=== PATIENT | male | born 1980 | race Caucasian/White ===

== ENCOUNTER 2020-03-23 19:45 | Emergency (ER) | payer OTHER, SELFPAY ==
[2020-03-23 19:47] VITALS: BP 134/91; PULSE 78; RESP 16; TEMP 35.7; O2SAT 98; BMI 23.7
--- NOTE | 2020-03-23 19:54 | ED.DCSUM_ITS ---
History of Present Illness Chief Complaint: Laceration Informant: Patient Onset: Hours - 1/2-hour prior to presentation Mechanism/Context: Blunt Injury, Fall Quality of Pain: - - No pain Location: Laceration superior and lateral right eyebrow Current Severity: Mild Maximum Severity: Moderate Worsened by: Bleeding from laceration Relieved by: Patient states his applied Hyperstat Associated Symptoms: Negative for: Parasthesias, Weakness, Loss of function, Inability to ambulate, Loss of consciousness, Amnesia Length of loss of consciousness: None Narrative: Double vision, blurred vision loss of vision. Denies headache. Denies nausea vomiting. Denies neck pain. He denies paresthesia, anesthesia medics. He denies chest pain or shortness of breath.He denies nausea or vomiting. He is not on an anticoagulant. Tetanus needs updated Tetanus Immunization: Unknown Prior similar symptoms: No Recent Illness/Hospitalization: No - Past Medical History (1) No significant past medical history Status: Acute Past Medical History - Allergies and Home Meds Allergies/Adverse Reactions: Allergies amoxicillin Allergy (Verified 03/23/20 19:46) Hives cefaclor [From Ceclor] Allergy (Verified 03/23/20 19:46) Hives Penicillins Allergy (Verified 03/23/20 19:46) Hives Primary Care Physician: Care Physician,No Primary [Primary Care Provider] - Prior records reviewed: No Past Medical History: None Surgical History: noncontributory Lives: Spouse/ Significant Other Smoking Status: Current every day smoker Alcohol: Occasional Drugs: None Review of Systems General: Denies: Chills, Fever, Malaise, Subjective, Sweats Eyes: Denies: Visual changes - bilaterally, Blurred Vision - bilaterally, Diplopia ENT: Reports: - - Negative epistaxis. Denies: Rhinorrhea, Sore throat Cardiovascular: Denies: Chest pain, Palpitations Respiratory: Denies: Dyspnea, Cough, Dyspnea on exertion Gastrointestinal: Denies: Nausea, Vomiting, Melena, Hematochezia Genitourinary: Denies: Hematuria Musculoskeletal: Denies: Myalgias, Arthralgias, Neck pain, Back pain, Swelling, Extremity Pain Skin: Reports: Wounds. Denies: Rash Neurological: Denies: Headache, Weakness, Parasthesia Hematologic: Denies: Easy bruising, Easy bleeding Physical Exam Vital Signs/Narrative: Vital Signs Temp Pulse Resp BP Pulse Ox 03/23/20 19:47 96.3 F L 78 16 134/91 H 98 Inital Vital Signs reviewed: Yes General: Well nourished, Well developed Head: Normocephalic, Trauma. Negative for: Atraumatic, Tenderness Eyes: Perrl, EOMI, - - No subconjunctival hemorrhage. There is no palpable depression.. Negative for: Pale conjunctiva, Scleral icterus ENT: TM's clear, No hemotympanum or drainage, No trauma. Negative for: Hemotympanum, Otorrhea, Nasal trauma, Nasal septal hematoma Neck: Nontender, Full ROM. Negative for: Spinal Tenderness, Paraspinal Tenderness Cardiovascular: Regular rate, Regular rhythm, No murmurs, Normal S1, Normal S2 Respiratory: No distress, CTA bilaterally, Chest nontender Rectal: Deferred Back: Nontender, - - Is no pain no patient of the pelvis.. Negative for: CVA Tenderness - Right, CVA Tenderness - Left Skin: Normal color, No rash, Trauma. Negative for: Cyanosis, Diaphoresis, Jaundice Neurological: Alert, Oriented x3, Cranial nerves II-XII grossly intact, Normal Strength, Normal Sensation, Normal Gait Psychological: Normal affect, Normal Mood Diagnostic/Tx/Re-eval - Medical Decision Making Has a gaping laceration that is 2 cm in length and will require repair. Tetanus was updated. Area was Nestabs with 1% lidocaine for local infiltration. Please read procedure note. Laceration No standard instances Length: 0.79 in - Is a raised nevus most lateral portion and superior Depth: Sub Q Shape: There is a small V shaped and linear laceration Prep: Ruth Ann Laceration Repair: Local Irrigated (ml): 125 Number of Sutures/[place]: 5 Stitch Description: Ethilon, Simple, 6-0 ED Disposition - Plan for ED Patient: Disposition: Home or Assisted Living Diagnosis: Laceration of forehead without complication Referrals: Care Physician,No Primary [Primary Care Provider] - Ingrid Spencer DO [STAFF PHYSICIAN] - 5 Days for suture removal Additional Instructions: Clean wound with peroxide and Q-tip 3 times a day then apply bacitracin ointment.
[2020-03-23] MEDS: Lidocaine 1% (20 ml mdv) 20 ML Vial INFILT (20:23)
[2020-03-23] MEDS: Diphth,Pertuss(Acell),Tet Vac 0.5 ML Vial IM (20:24)
== END 2020-03-23 20:54 | disposition home or self-care (01) ==
PROVIDERS: Emergency Provider Emergency Medicine
DX: S01.81XA Laceration without foreign body of other part of head, initial encounter (principal); F17.200 Nicotine dependence, unspecified, uncomplicated; X58.XXXA Exposure to other specified factors, initial encounter
CPT/HCPCS: 12011; 90471; 90715; 99283

== ENCOUNTER → 2020-10-14 18:21 | Outpatient (CLI) | payer OTHER, SELFPAY ==
[2020-10-16 20:08] LABS: Covid Inpatient test code BILL Performed (.)
== END ==
PROVIDERS: Visit Provider Physician Assistant Surgical
DX: Z11.52 Encounter for screening for COVID-19 (principal)
CPT/HCPCS: 87635; U0005; U0003

== ENCOUNTER 2024-09-01 22:41 | Emergency (ER) | payer OTHER, SELFPAY ==
[2024-09-01 22:41] VITALS: BP 104/76; PULSE 75; RESP 20; TEMP 36.3; O2SAT 96; BMI 23.1
--- NOTE | 2024-09-01 22:54 | EX.ED.UPPERE ---
HPI History of Present Illness Chief Complaint: Upper Extremity Injury Informant: patient and spouse/S.O. Narrative Narrative: [id number] male here with spouse for evaluation of right shoulder injury prior to arrival. Drinking alcohol, was coming down the stairs he missed the last step falling down outstretched arm. Pain to his right shoulder no head injuries. No anticoagulants. Pain with movement of the shoulder. No history of dislocation in the past. Last meal was around 8 PM less than 3 hours ago. Prior similar symptoms: No PFSH PFSH Medical History no medical history Home Medications ?Medication ?Instructions ?Recorded ?Last Taken ?Type NK 03/23/20 Unknown History Allergy/AdvReac Type Severity Reaction Status Date / Time amoxicillin Allergy Hives Verified 09/01/24 22:41 cefaclor (From [facility]) Allergy Hives Verified 09/01/24 22:41 Penicillins Allergy Hives Verified 09/01/24 22:41 Family History no significant family his Surgical History (Updated 09/01/24 @ 23:02 by Jailene Montgomery) H/O hand surgery History of tonsillectomy H/O knee surgery Social History Smoking Status: Current every day smoker tobacco type: e-cigarettes ROS ROS ED Constitutional Constitutional ED: Denies fever(s) Cardiovascular Cardiovascular: Denies chest pain Respiratory/Chest Respiratory/Chest: Denies cough Gastrointestinal Gastrointestinal: Denies diarrhea or vomiting Musculoskeletal Musculoskeletal: Reports other Details: Right shoulder injury Integumentary Denies rash or wounds Neurologic Neurologic: Denies weakness EXAM Physical Exam Const Vital Signs: 09/01/24 22:41 Temperature 97.3 F L Temperature Source Temporal Pulse Rate 75 Respiratory Rate 20 H Blood Pressure 104/76 Blood Pressure Mean 85 Pulse Ox 96 Oxygen Delivery Method Room Air Positive well nourished and well developed Constitutional Narrative: GCS 15, clinically not intoxicated General Appearance ED: well developed HEENT normocephalic and atraumatic Eyes General Eye ED: Yes normal appearance of both eyes Neck full ROM Neck Narrative: No midline tenderness or step-offs. Chest Wall inspection of chest normal and palpation of chest normal Resp normal respiratory effort and normal air movement Cardio regular rate and regular rhythm GI soft to palpation Extremity Extremity Narrative: Right upper extremity: No clavicle tenderness. There is deformity of the shoulder. No mid humeral tenderness no elbow tenderness. Skin intact. Neuro vas intact. Neuro oriented x3 Skin no rashes or lesions noted and no wounds MDM MDM MDM Narrative Medical decision making narrative: Interventions / MDM: Differential diagnosis: Shoulder dislocation Diagnosis considered but do not suspect: Fracture however x-ray negative. My EKG interpretation: N/A Imaging independently reviewed and interpreted by myself: 3 view right shoulder x-ray: Anterior shoulder dislocation. No fractures. Postreduction x-ray 2 views right shoulder: Successful reduction. External documents reviewed: N/A Test considered but not ordered:N/A ED course: Clinical dislocation of the shoulder. No history of this. He ate 3 hours ago. IV established on the left side of the arm. Morphine Zofran will check x-ray. 2330: X-ray confirms dislocation no fracture. He ate 8 PM less than 4 hours ago. Discussed consented verbally for awake attempt reduction. He agreed. He was sent bedside, sitting straight up, attempted Perez and Dawson's maneuver. Still tense at this time. He is placed in prone position arm hanging over the bed at this time. Will reevaluate. 2355: Procedure note: Shoulder reduction. Verbal consent with the patient. Patient will relax on prone position. Modified Perez maneuver performed with him laying down, reduction reduced without any complications. Improvement of symptoms. Patient tolerated the procedure well. Patient placed in a sling and swath, will obtain imaging to confirm relocation. X-ray confirms relocation. He will use Tylenol or Motrin. He is given follow-up with orthopedic service. Re-evaluation: stable Disposition discussed with patient/family/significant other: Patient Case discussed with consulting clinician: N/A This note was generated with [employer] dictation software. It may contain incorrect words, spelling, and punctuation that were not noted in checking the note before signing. Discharge Plan Triage Chief Complaint: Upper Extremity Injury ED Provider: Radames Diallo Dx/Rx/DC Orders Clinical Impression: Anterior dislocation of right shoulder, Fall Instructions: ED Dislocation: Shoulder (Reduced) Prescriptions: No Action NK Primary Care Provider: Care Physician,No Primary Referrals: Randy Panchal MD [Med Staff - Active Staff] - 3-5 Days Care Physician,No Primary [Primary Care Provider] - Activity Restrictions/Additional Instructions: Maintain sling and swath. Tylenol or Motrin as needed. Follow-up with Dr. Panchal. Print Language: Portuguese Disposition Disposition: Home, Self Care Discharge Date/Time: 09/02/24 02:16
--- NOTE | 2024-09-01 23:01 | RAD_ITS ---
PROCEDURE: SHOULDER MIN 2 VIEWS 09/01/2024 REASON FOR EXAM: INJURY, DISLOCATION TECHNIQUE: SHOULDER MIN 2 VIEWS COMPARISON: No FINDINGS: Anterior inferior glenohumeral dislocation. No visible fracture. RAD/Shoulder min 2 Views IMPRESSION: Right shoulder dislocation. Reading Location: [place] [id number]
--- OUTSIDE RECORDS SUMMARY | 2024-09-01 23:04 | XMS RPT_ITS | CCD ---
Author Organization [facility] Care Team Providers Care Mobility Developer Name Role Phone Doron Cassidy DO Primary Care Provider Dayanara vailable Unavailable Primary Care Provider KAYLA Art Referring Unavailable KAYLA ARENAS Attending Unavailable Allergies Allergy Classification Reported Allergen(s) Allergy Type Date of Onset Reaction(s) Facility (19 sources) Amoxicillin; Translations: [AMOXICILLIN] Drug Allergy 0 [facility] Work Phone: (19 sources) Cefaclor; Translations: [CEFACLOR] Drug Allergy 0 [facility] Work Phone: (4 sources) Penicillins; Translations: [PENICILLINS] Drug Intolerance 0 [facility] Work Phone: (14 sources) Penicillins Drug Intolerance 0 [facility] Work Phone: (1 source) Penicillins Drug Intolerance 0 [facility] Medications Current Medications Medication Drug Class(es) Dates Sig (Normalized) Sig (Original) acetaminophen 325 mg oral capsule (16 sources) acetaminophen 32 5 mg cap Take by mouth as needed. Active Comment on above: Take by mouth as nee ded. cholecalciferol, vitamin D3, (VITAMIN D3 50 MCG, 2,000 UNIT, GUMMIES) (16 sources) take 1 dose by mouth once daily cholecalciferol, vitamin D3, (VITAMIN D3 50 MCG, 2,000 UNIT, GUMMIES) Take 1 Dose by mouth once daily. Active take 1 dose by mouth once daily cholecalciferol, vitamin D3, (VITAMIN D3 50 MCG, 2,000 UNIT, GUMMIES) Take 1 Dose by mouth once daily. 0 Active Comment on above: Take 1 Dose by mouth once daily. ibuprofen 800 mg oral tablet (4 sources) Nonsteroidal Anti-inflammatory Drug Start: 12-23-19 take 1 tablet by mouth three times daily at mealtime ibuprofen (MOTRIN) 800 mg tablet Take 800 mg by mouth three times a day with meals. 12/22/2022 Active multivitamin (DAILY MULTI-VITAMIN) tablet (16 sources) take 1 tablet by mouth once daily multivitamin (DAILY MULTI-VITAMIN) tablet Take 1 tablet by mouth once daily. Active take 1 tablet by mouth once phillip y multivitamin (DAILY MULTI-VITAMIN) tablet Take 1 tablet by mouth once daily. 0 Active Comment on above: Take 1 tablet by patricia th once daily. predniSONE 10 mg oral tablet (1 source) Start: 10-04-2022 End: 10-13-2022 predniSONE (DELTASONE) 10 mg tablet Indications: Acute pain of left knee Take 4 tabs daily for 3 days, then 2 tabs daily for 3 days, then 1 tab daily for 3 days with food. 21 tablet 0 10/04/2022 10/13/2022 Active Comment on above: Take 4 tabs daily fo r 3 days, then 2 tabs daily for 3 days, then 1 tab daily for 3 days with food. tamsulosin hydrochloride 0.4 mg oral capsule (5 sources) alpha-Adrenergic Mirna Start: 02-16-2023 End: 03-27-2024 take 1 capsule by mouth once daily at bedtime tamsulosin (FLOMAX) 0.4 mg Indications: Right flank pain Take 1 capsule by mouth daily at bedtime. 30 capsule 03/27/2024 Active Zinc (16 sources) take 1 tablet by mouth once daily Zinc 50 mg tab Take 50 mg by mouth once daily. Active take 1 tablet by mouth once phillip y Zinc 50 mg tab Take 50 mg by mouth once daily. 0 Active Comment on above: Take 50 mg by mouth once daily. Problems Active Problems Problem Classification Problem Date Documented Date Episodic/Chronic Abdominal pain (7 sources) Right flank pain; Translations: [Unspecified abdominal pain] Onset: 03-27-2024 Episodic Alcohol-related disorders (16 sources) Alcohol abuse; Translations: [Alcohol abuse, uncomplicated] Onset: 11-18-2020 11-18-2020 Chronic Genitourinary symptoms and ill-defined conditions (3 sources) Increased frequency of urination; Translations: [Frequency of micturition] Onset: 03-27-2024 Episodic Joint disorders and dislocations; trauma-related (16 sources) Chondromalacia of left patella; Translations: [Chondromalacia patellae, left knee] Onset: 12-23-2022 12-29-2022 Chronic Other connective tissue disease (1 source) Pain in right hand; Translations: [Pain in right hand] Episodic Other non-traumatic joint disorders (1 source) Pain in left knee; Translations: [Pain in joint, lower leg] 10-04-2022 Episodic Viral infection (1 source) Disease caused by 2019-nCoV; Translations: [COVID-19] Episodic Past or Other Problems Problem Classification Problem Date Documented Da te Episodic/Chronic Fracture of upper limb (17 sources) Closed fracture of fourth metacarpal; Translations: [Unspecified fracture of fourth metacarpal bone, right hand, subsequent encounter for fracture with malunion] Onset: 11-18-2020 11-18-2020 Episodic Joint disorders and dislocations; trauma-related (16 sources) Acute tear of medial meniscus of left knee; Translations: [Other tear of medial meniscus, current injury, left knee, subsequent encounter] Onset: 12-23-2022 12-29-2022 Episodic Results Test Name Value Interpretation Reference Range Facility [facility] 03-30-2024 CNCO Letter Text Normal [facility] CNPNon 03-30-2024 SUIZEN Telephone (FRANCINE) WON LOAIZA ([id number]) 1980 M Date Time Provider Department 03/30/24 KAYLA ARENAS During your visit today, we recorded the following information about you: Houston Cruz MA 03/30/2024 10:14 AM Signed Pt called and was asking for a call to go over recent CT results YEISON Ortega James, MA 03/30/2024 10:39 AM Signed Pt called asking for a doctor note for pt's job/note was faxed [phone]/conforma tion of note sent was received YEISON Ortega James, MA 03/30/2024 10:43 AM Signed Left message with information asked ot to call back office if any questions Housotn Cruz MA Allergies As of Date: 03/30/2024 Noted Allergy Reaction AMOXICILLIN 04/16/2019 4 - Hives CECLOR (CEFACLOR) 04/16/2019 4 - Hives PENICILLINS 04/16/2019 4 - Hives Date Reviewed: 03/27/2024 Reviewed by: Houston Cruz MA - Fully Assessed Reason for Visit: Results [95] Prescriptions as of 03/30/2024 - tamsulosin (FLOMAX) 0.4 mg Take 1 capsule by mouth daily at bedtime. - ibuprofen (MOTRIN) 800 mg tablet Take 800 mg by mouth three times a day with meals. - acetaminophen 325 mg cap Take by mouth as needed. - multivitamin (DAILY MULTI-VITAMIN) tablet Take 1 tablet by mouth once daily. - cholecalciferol, vitamin D3, (VITAMIN D3 50 MCG, 2,000 UNIT, GUMMIES) Take 1 Dose by mouth once daily. - Zinc 50 mg tab Take 50 mg by mouth once daily. Problem List As Of Date 03/30/2024 Noted Resolved Alcohol abuse [F10.10] 11/18/2020 Closed fracture of fourth metacarpal bone of ri*11/18/2020 Acute medial meniscus tear of left knee [S83.24*12/23/2022 Chondromalacia of left patella [M22.42] 12/23/2022 Encounter Status:Closed by HOUSTON CRUZ on 03/30/24 Normal [facility] CT Abdomen and Pelvis WO con traston 03-28-2024 IMPRESSION: No urinary tract calculus. No hydronephrosis. [employer]: MATTHEW Transcribe Date/Time: Mar 28 2024 9:25A Dictated by : NIKO WOODWARD MD This examination was interpreted and the report reviewed and electronically signed by: NIKO WOODWARD MD on Mar 28 2024 9:31AM [facility] DIVISION OF RADIOLOGY * * *Final Report* * * DATE OF EXAM: Mar 28 2024 8:35AM [facility] 0529 - CT FLANK WO IVCON / PROCEDURE REASON: Right flank pain * * * * Physician Interpretation * * * * EXAMINATION: CT FLANK WITHOUT IV CONTRAST CLINICAL HISTORY: Right flank pain. TECHNIQUE: Non-contrast imaging of the abdomen and pelvis was performed through the urinary tract. Study performed without intravenous or oral contrast to evaluate for urinary tract calculus. MQ: CTAbdPelvF_1 Contrast: IV contrast: None Oral contrast: None CT Radiation dose: Integrated dose-length product (DLP) for this visit = 220 mGy*cm. CT Dose Reduction Employed: Automated exposure control(AEC) and iterative recon COMPARISON: CT flank on 02/17/2023 RESULT: Limitations: Unenhanced imaging is limited for the evaluation of some renal and other intra-abdominal and pelvic pathology. Urinary Tract: Right kidney and ureter: No calculus. No hydronephrosis. No finding to suggest cyst or mass in the unenhanced kidney. Left kidney and ureter: No calculus. No hydronephrosis. No finding to suggest cyst or mass in the unenhanced kidney. Bladder: No calculus. Abdomen and Pelvis: Liver: Unremarkable. Biliary: No CT evidence of gallbladder stones. No bile duct dilation. Spleen: No splenomegaly. Pancreas: Unremarkable. Adrenals: Normal. GI Tract: No bowel obstruction. There appears be rectal wall thickening. The appendix is identified and normal in appearance. No visible diverticulitis. Lymph Nodes: No lymphadenopathy. Mesentery/peritoneum: No ascites. No free abdominal air. Vasculature: Not fully characterized. Pelvis: No mass or ascites. Bones and Soft Tissues: No acute abnormality. Lower thorax: Unremarkable. Localizer images: No additional findings. DIVISION OF RADIOLOGY Provider, [facility] - 03/28/2024 * * *Final Report* * * DATE OF EXAM: Mar 28 2024 8:35AM [facility] 0529 - CT FLANK WO IVCON / PROCEDURE REASON: Right flank pain * * * * Physician Interpretation * * * * EXAMINATION: CT FLANK WITHOUT IV CONTRAST CLINICAL HISTORY: Right flank pain. TECHNIQUE: Non-contrast imaging of the abdomen and pelvis was performed through the urinary tract. Study performed without intravenous or oral contrast to evaluate for urinary tract calculus. MQ: CTAbdPelvF_1 Contrast: IV contrast: None Oral contrast: None CT Radiation dose: Integrated dose-length product (DLP) for this visit = 220 mGy*cm. CT Dose Reduction Employed: Automated exposure control(AEC) and iterative recon COMPARISON: CT flank on 02/17/2023 RESULT: Limitations: Unenhanced imaging is limited for the evaluation of some renal and other intra-abdominal and pelvic pathology. Urinary Tract: Right kidney and ureter: No calculus. No hydronephrosis. No finding to suggest cyst or mass in the unenhanced kidney. Left kidney and ureter: No calculus. No hydronephrosis. No finding to suggest cyst or mass in the unenhanced kidney. Bladder: No calculus. Abdomen and Pelvis: Liver: Unremarkable. Biliary: No CT evidence of gallbladder stones. No bile duct dilation. Spleen: No splenomegaly. Pancreas: Unremarkable. Adrenals: Normal. GI Tract: No bowel obstruction. There appears be rectal wall thickening. The appendix is identified and normal in appearance. No visible diverticulitis. Lymph Nodes: No lymphadenopathy. Mesentery/peritoneum: No ascites. No free abdominal air. Vasculature: Not fully characterized. Pelvis: No mass or ascites. Bones and Soft Tissues: No acute abnormality. Lower thorax: Unremarkable. Localizer images: No additional findings. IMPRESSION IMPRESSION: No urinary tract calculus. No hydronephrosis. [employer]: [facility] Transcribe Date/Time: Mar 28 2024 9:25A Dictated by : NIKO WOODWARD MD This examination was interpreted and the report reviewed and electronically signed by: NIKO WOODWARD MD on Mar 28 2024 9:31AM EST [facility] Radiology Study observation (narrative) [facility] CT Abdomen and Pelvis WO con trastOrdered By: [facility] Provider on 03-28-2024 [facility] CT FLANK WO IVCONon 03-28-19 CT FLANK WO IVCON * * *Final Report* * * DATE OF EXAM: Mar 28 2024 8:35AM [facility] 0529 - CT FLANK WO IVCON / PROCEDURE REASON: Right flank pain * * * * Physician Interpretation * * * * EXAMINATION: CT FLANK WITHOUT IV CONTRAST CLINICAL HISTORY: Right flank pain. TECHNIQUE: Non-contrast imaging of the abdomen and pelvis was performed through the urinary tract. Study performed without intravenous or oral contrast to evaluate for urinary tract calculus. MQ: CTAbdPelvF_1 Contrast: IV contrast: None Oral contrast: None CT Radiation dose: Integrated dose-length product (DLP) for this visit = 220 mGy*cm. CT Dose Reduction Employed: Automated exposure control(AEC) and iterative recon COMPARISON: CT flank on 02/17/2023 RESULT: Limitations: Unenhanced imaging is limited for the evaluation of some renal and other intra-abdominal and pelvic pathology. Urinary Tract: Right kidney and ureter: No calculus. No hydronephrosis. No finding to suggest cyst or mass in the unenhanced kidney. Left kidney and ureter: No calculus. No hydronephrosis. No finding to suggest cyst or mass in the unenhanced kidney. Bladder: No calculus. Abdomen and Pelvis: Liver: Unremarkable. Biliary: No CT evidence of gallbladder stones. No bile duct dilation. Spleen: No splenomegaly. Pancreas: Unremarkable. Adrenals: Normal. GI Tract: No bowel obstruction. There appears be rectal wall thickening. The appendix is identified and normal in appearance. No visible diverticulitis. Lymph Nodes: No lymphadenopathy. Mesentery/peritoneum: No ascites. No free abdominal air. Vasculature: Not fully characterized. Pelvis: No mass or ascites. Bones and Soft Tissues: No acute abnormality. Lower thorax: Unremarkable. Localizer images: No additional findings. IMPRESSION: No urinary tract calculus. No hydronephrosis. [employer]: MATTHEW Transcribe Date/Time: Mar 28 2024 9:25A Dictated by : NIKO WOODWARD MD This examination was interpreted and the report reviewed and electronically signed by: NIKO WOODWARD MD on Mar 28 2024 9:31AM EST [id number] Normal [facility] Bacteria Ur Culton 5 Bacteria identified Cx Nom (U) CULTURE, URINE: No growth (<1,000 CFU/ml) Normal [facility] Comment on above: Performed By: #### 6 30-4 #### [facility] CLIA [id number] [address] [place] [address] [place] CNOVon 03-27-2024 CNOV Office Visit (UROLAE ) OLIVERWON Daniels ([id number]) 1980 M Date Time Provider Department 03/27/24 3:20 PM KAYLA ARENAS During your visit today, we recorded the following information about you: Respiration Weight Height 20/minute 79.4 kg 1.88 m Kayla Arenas PA 03/27/2024 4:28 PM Signed [facility] ====== HISTORY OF PRESENT ILLNESS ====== The patient is 43 year old male with a history of urinary frequency who presents for follow up Patient was last seen in urology one year ago for acute left flank pain. He was started on Flomax 0.4 mg daily. However Interval History Patient started experiencing right flank pain one week ago. He also has decreased urine stream over the past week. No blood in the urine, fever or chills DATA REVIEW LABS No results found for: CREAT No results found for: PSA PAST MEDICAL HISTORY/COMORBIDITIES PAST MEDICAL HISTORY Diagnosis Date NEGATIVE MEDICAL HISTORY PAST SURGICAL HISTORY Procedure Laterality Date PAST SURGICAL HISTORY OF tonsillectomy TONSILLECTOMY HX REVIEW OF SYSTEMS REVIEW OF SYSTEMS: CONSTITUTIONAL: No fevers, chills, nightsweats, unintended weight loss GI: No dysphagia/odynophagia , problematic reflux, constipation, diarrhea, changes in stool habits, hematochezia, melena. : No new urinary complaints, including dysuria, gross hematuria or pyuria. INTEGUMENTARY: No new skin changes (rash, new or changing mole, new growth) All other systems were reviewed and are negative. PHYSICAL EXAM GENERAL APPEARANCE: Alert and oriented, No acute distress. HEENT: EOM, pupils equal, round and reactive. NECK: Normal ROM. LUNGS: Normal effort CARDIAC: Well perfused. ABDOMEN: Soft, non-tender, no rigidity. Non-distended. No CVAT MUSCULOSKELETAL: No edema. Normal ROM in extremities. NEUROLOGIC: Gait normal. No focal deficits. SKIN: Skin color normal. No suspicious rashes or lesions. = ASSESSMENT AND PLAN = This is a 43 year old male who presented today for follow up of acute right flank pain. No CVAT Plan: - CT Flank sometime soon - Check culture and UA microscopy - Start Flomax 0.4 mg - Further plans pending this Kayla Arenas PA-C Allergies As of Date: 03/27/2024 Noted Allergy Reaction AMOXICILLIN 04/16/2019 4 - Hives CECLOR (CEFACLOR) 04/16/2019 4 - Hives PENICILLINS 04/16/2019 4 - Hives Date Reviewed: 03/27/2024 Reviewed by: Houston Cruz MA - Fully Assessed Reason for Visit: Kidney Stones [31197] Cmt: possible Primary Visit Diagnosis:Right flank pain [R10.9] Other Visit Diagnosis:Frequency of urination [R35.0] Order(s):UA DIP, URINE (POC) [1570222] Order #: [id number] UA DIP, URINE (POC) [[id number]] Order #: [id number]. #:[id number] CT FLANK WO IVCON [[id number]] Order #: [id number] FUTURE tamsulosin (FLOMAX) 0.4 mgTake 1 capsule by mouth daily at bedtime.Disp: 30 capsuleRfl: 0 BACTERIAL CULTURE, URINE [SQURCUL] Order #: [id number]. #:[id number] URINALYSIS, WITH MICROSCOPIC [SQUAWMIC] Order #: [id number]. #:[id number] Prescriptions as of 03/27/2024 - tamsulosin (FLOMAX) 0.4 mg Take 1 capsule by mouth daily at bedtime. - ibuprofen (MOTRIN) 800 mg tablet Take 800 mg by mouth three times a day with meals. - acetaminophen 325 mg cap Take by mouth as needed. - multivitamin (DAILY MULTI-VITAMIN) tablet Take 1 tablet by mouth once daily. - cholecalciferol, vitamin D3, (VITAMIN D3 50 MCG, 2,000 UNIT, GUMMIES) Take 1 Dose by mouth once daily. - Zinc 50 mg tab Take 50 mg by mouth once daily. Problem List As Of Date 03/27/2024 Noted Resolved Alcohol abuse [F10.10] 11/18/2020 Closed fracture of fourth metacarpal bone of ri*11/18/2020 Acute medial meniscus tear of left knee [S83.24*12/23/2022 Chondromalacia of left patella [M22.42] 12/23/2022 Prescriptions ordered this encounter Disp Refills Start End TAMSULOSIN 0.4 MG CAPSULE 30 c* 0 03/27/2024 Route: ORAL Sig: Take 1 capsule by mouth daily at bedtime. Medications Discontinued During This Encounter Prescriptions - tamsulosin (FLOMAX) 0.4 mg (Discontinued) Take 1 capsule by mouth once daily. Encounter Status:Closed by KAYLA ARENAS on 03/27/24 Normal [facility] UA DIP, URINE (POC)on 2024 BILIRUBIN UA (POCT) Negative Negative [facility] CLARITY UA (POCT) Clear [facility] COLOR UA (POCT) Yellow [facility] GLUCOSE UA (POCT) Negative Negative mg/dL [facility] Hemoglobin Ql (U) Trace-intact Abnormal Negative [facility] Interpretation and review of laboratory results Abnormal [facility] KETONE UA (POCT) 15 mg/dL Abnormal Negative [facility] LEUKOCYTES UA (POCT) Negative Negative [facility] NITRITE UA (POCT) Negative Negative [facility] PH UA (POCT) 6 4.5 - 8.0 [facility] Protein Ql (U) Negative Negative mg/dL [facility] SPECIFIC GRAVITY UA (POCT) 1.015 1.005 - 1.030 [facility] UROBILINOGEN UA (POCT) 0.2 Normal E.U./dL [facility] Location:[facility] Urology Dept, [address] [place] [address], [address] [place] [address] POINT OF CARE [facility] Urinalysis complete panel (U )on 03-27-2024 Bilirubin Ql (U) Negative Negative [facility] Clarity (Unsp spec) Clear Clear [facility] Color (U) Light Yellow yellow [facility] Glucose Test strip (U) [Mass/Vol] Negative Trace, Negative [facility] Hemoglobin Ql (U) Negative Negative, Trace [facility] Interpretation and review of laboratory results Normal [facility] Ketones Ql (U) Trace Negative, Trace [facility] Leukocyte esterase Test strip Ql (U) Negative Negative, 25 Romario/uL [facility] Nitrite Ql (U) Negative Negative [facility] pH (U) 6 [pH] 5.0 - 8.0 [facility] Protein (U) [Mass/Vol] Negative Trace, Negative [facility] RBC LM.HPF (Urine sed) [#/Area] 0-3 /HPF 0-3 /HPF [facility] Specific gravity (U) [Rel density] 1.011 1.005 - 1.030 [facility] Urobilinogen Ql (U) Normal Normal [facility] WBC LM.HPF (Urine sed) [#/Area] 0-5 /HPF 0-5 /HPF [facility] Bilirubin Ql (U) Negative Normal Negative [facility] Comment on above: Order Comment: Speci men Type: URINE SPECIMEN Ordering Facility: [facility] Address: [address] [place] [address] Performed By: #### 2 4356-8 #### [facility] CLIA [id number] [address] [place] [address] [place] Clarity (Unsp spec) Clear Normal Clear [facility] Comment on above: Order Comment: Speci men Type: URINE SPECIMEN Ordering Facility: [facility] Address: [address] [place] [address] Performed By: #### 2 4356-8 #### [facility] CLIA [id number] [address] [place] Color (U) Light Yellow Normal yellow [facility] Comment on above: Order Comment: Speci men Type: URINE SPECIMEN Ordering Facility: [facility] Address: [facility] [place] [address] Performed By: #### 2 4356-8 #### [facility] CLIA [id number] [address] OF [place] Glucose Test strip (U) [Mass/Vol] Negative Normal Trace, Negative [facility] Comment on above: Order Comment: Speci men Type: URINE SPECIMEN Ordering Facility: [facility] Address: [address] [place] [address] Performed By: #### 2 4356-8 #### [facility] CLIA [id number] [address] [place] Hemoglobin Ql (U) Negative Normal Negative, Trace [facility] Comment on above: Order Comment: Speci men Type: URINE SPECIMEN Ordering Facility: [facility] Address: [address] [place] [address] Performed By: #### 2 4356-8 #### [facility] CLIA [id number] [address] OF [place] Ketones Ql (U) Trace Normal Negative, Trace [facility] Comment on above: Order Comment: Speci men Type: URINE SPECIMEN Ordering Facility: [facility] Address: [address] [place] [address] Performed By: #### 2 4356-8 #### [facility] CLIA [id number] [address] OF [facility] Leukocyte esterase Test strip Ql (U) Negative Normal Negative, 25 Romario/uL [facility] Comment on above: Order Comment: Speci men Type: URINE SPECIMEN Ordering Facility: [facility] Address: [address] [place] [address] Performed By: #### 2 4356-8 #### [facility] CLIA [id number] [address] [place] Nitrite Ql (U) Negative Normal Negative [facility] Comment on above: Order Comment: Speci men Type: URINE SPECIMEN Ordering Facility: [facility] Address: [address] [place] [address] Performed By: #### 2 4356-8 #### [facility] CLIA [id number] [address] [place] pH (U) 6.0 [pH] Normal 5.0-8.0 [facility] Comment on above: Order Comment: Speci men Type: URINE SPECIMEN Ordering Facility: [facility] Address: [address] [place] [address] Performed By: #### 2 4356-8 #### [facility] CLIA [id number] [address] Protein (U) [Mass/Vol] Negative Normal Trace, Negative [facility] Comment on above: Order Comment: Speci men Type: URINE SPECIMEN Ordering Facility: [facility] Address: [address] [place] [address] Performed By: #### 2 4356-8 #### [facility] CLIA [id number] [address] [place] RBC LM.HPF (Urine sed) [#/Area] 0-3 /HPF Normal 0-3 /HPF [facility] Comment on above: Order Comment: Speci men Type: URINE SPECIMEN Ordering Facility: [facility] Address: [address] [place] [address] Performed By: #### 2 4356-8 #### [facility] CLIA [id number] [address] OF [place] Specific gravity (U) [Rel density] 1.011 Normal 1.005-1.030 [facility] [facility] Comment on above: Order Comment: Speci men Type: URINE SPECIMEN Ordering Facility: [facility] Address: [address] [place] [address] Performed By: #### 2 4356-8 #### [facility] CLIA [id number] [address] Urobilinogen Ql (U) Normal Normal Normal [facility] Comment on above: Order Comment: Speci men Type: URINE SPECIMEN Ordering Facility: [facility] Address: [address] [place] [address] Performed By: #### 2 4356-8 #### [facility] CLIA [id number] [address] STATES [facility] WBC LM.HPF (Urine sed) [#/Area] 0-5 /HPF Normal 0-5 /HPF [facility] Comment on above: Order Comment: Speci men Type: URINE SPECIMEN Ordering Facility: [facility] Address: [address] [place] [address] Performed By: #### 2 4356-8 #### [facility] CLIA [id number] [address] XR KNEE GENERAL 4V AP BOTH/P A BOTH/LAT/MERC LEFTon 10-04-2022 [facility] XR Knee - left 4 Viewson IMPRESSION: Negative bilateral knee. [employer]: MATTHEW Transcribe Date/Time: Oct 04 2022 5:51P Dictated by : ALEC GUEVARA MD This examination was interpreted and the report reviewed and electronically signed by: ALEC GUEVARA MD on Oct 04 2022 5:55PM [facility] DIVISION OF RADIOLOGY * * *Final Report* * * DATE OF EXAM: Oct 04 2022 5:32PM WOX 5202 - XR KNEE 4V AP/PA BOTH+LAT/LIZBET LT / PROCEDURE REASON: Acute pain of left knee * * * * Physician Interpretation * * * * EXAMINATION: LEFT KNEE X-RAY SERIES EXAMINATION: BILATERAL KNEE STANDING X-RAY SERIES HISTORY: Acute pain of left knee COMPARISON: None available. TECHNIQUE: Left knee x-ray series, lateral view ; bilateral knee standing AP/PA x-ray images and patellar views of both knees RESULT:Left knee: No fracture, dislocation or destructive changes. Joint spaces and articular surfaces are preserved. No evidence of knee joint effusion. Right knee: No evidence of fracture, dislocation or foreign body. Visualized joint spaces appear within normal limits. DIVISION OF RADIOLOGY Provider, Mica Capellan - 10/04/2022 * * *Final Report* * * DATE OF EXAM: Oct 04 2022 5:32PM WOX 5202 - XR KNEE 4V AP/PA BOTH+LAT/LIZBET LT / PROCEDURE REASON: Acute pain of left knee * * * * Physician Interpretation * * * * EXAMINATION: LEFT KNEE X-RAY SERIES EXAMINATION: BILATERAL KNEE STANDING X-RAY SERIES HISTORY: Acute pain of left knee COMPARISON: None available. TECHNIQUE: Left knee x-ray series, lateral view ; bilateral knee standing AP/PA x-ray images and patellar views of both knees RESULT:Left knee: No fracture, dislocation or destructive changes. Joint spaces and articular surfaces are preserved. No evidence of knee joint effusion. Right knee: No evidence of fracture, dislocation or foreign body. Visualized joint spaces appear within normal limits. IMPRESSION IMPRESSION: Negative bilateral knee. [employer]: PSCB Transcribe Date/Time: Oct 04 2022 5:51P Dictated by : ALEC GUEVARA MD This examination was interpreted and the report reviewed and electronically signed by: ALEC GUEVARA MD on Oct 04 2022 5:55PM EST [facility] Radiology Study observation (narrative) [facility] XR Knee - left 4 ViewsOrdere d By: Ccf Provider on 10-04-2022 [facility] UA DIP, URINE (POC)on 2022 BILIRUBIN UA (POCT) Negative Negative [facility] CLARITY UA (POCT) Clear [facility] COLOR UA (POCT) Yellow [facility] GLUCOSE UA (POCT) Negative Negative mg/dL [facility] HEMOGLOBIN/BLOOD UA (POCT) Negative Negative [facility] KETONE UA (POCT) Negative Negative mg/dL [facility] LEUKOCYTES UA (POCT) Negative Negative [facility] NITRITE UA (POCT) Negative Negative [facility] PH UA (POCT) 6.5 4.5 - 8.0 [facility] Protein Ql (U) Negative Negative mg/dL [facility] SPECIFIC GRAVITY UA (POCT) <=1.005 Abnormal 1.005 - 1.030 [facility] UROBILINOGEN UA (POCT) 0.2 E.U./dL Normal E.U./dL [facility] ANES POSTPROC EVALon 021 ANES POSTPROC EVAL HNO ID: [id number] Author: Vladimir Gan MD Service: ? Author Type: Anesthesiologist Type: Anesthesia Postprocedure Evaluation Filed: 11/19/2020 3:17 PM Note Text: POST ANESTHESIA EVALUATION NOTE : 1980 Procedure Summary Date: 11/19/20 Room / Location: TX OR / TX OR Anesthesia Start: 1316 Anesthesia Stop: 1449 Procedure: ORIF METACARPAL (Right Hand) Diagnosis: Hand fracture, right, closed, initial encounter Surgeons: Anderson Powell MD Responsible Provider: Vladimir Gan MD Anesthesia Type: regional ASA Status: 1 Anesthesia Type: regional Last vitals Vitals Value Taken Time BP 130/82 11/19/20 1515 Temp 11/19/20 1516 Pulse 54 11/19/20 1515 Resp 15 11/19/20 1515 SpO2 99 % 11/19/20 1515 Post Anesthesia Patient Status Patient Evaluation: bedside. Anticipated Disposition: phase 2 then home. Neurological Status: aware and responsive. Pulmonary Status: breathing comfortably on room air Airway Control: returned to baseline unsupported. Cardiovascular Status: stable. Pain Management: clinically adequate Postoperative Hydration: acceptable. Intraoperative Events: no significant anesthesia events Post Operative Nausea/Vomiting Status: no significant post operative nausea or vomiting Anesthetic Observations: Recommendation: continue current plan of care. Anesthesia Observations No Documentation SIGNATURE: Vladimir Gan MD PATIENT NAME: Won Loaiza DATE: November 19, 2020 TIME: 3:16 PM CSN: [id number] [facility] ANES PRE-OPon 11-19-2020 ANES PRE-OP HNO ID: [id number] Author: Vladimir Gan MD Service: ? Author Type: Anesthesiologist Type: Anesthesia Preprocedure Evaluation Filed: 11/19/2020 1:26 PM Note Text: ANESTHESIOLOGY DAY OF SURGERY NOTE : 1980 Procedure(s) (LRB): ORIF METACARPAL (Right) Surgeon(s): Anderson Powell MD Estimated body mass index is 21.18 kg/m? as calculated from the following: Height as of this encounter: 188 cm (6' 2). Weight as of this encounter: 74.8 kg (165 lb). Most recent hematocrit and potassium results: No results found for this basename: HCT,HEMATOCRIT,K,POTA SSIUM Relevant Problems No relevant active problems I - PHYSICAL EVALUATION AIRWAY Patient intubated: No. Tracheostomy tube not present Mallampati: II. TM distance: >3 FB. Neck ROM: full ROM without neurological symptoms. Short neck: no. Thick neck: no DENTAL Dental findings: teeth intact. Additional exam findings: yes. CARDIOVASCULAR Rhythm: regular Rate: normal PULMONARY Breath sounds clear to auscultation. II - ANESTHESIA PLAN ASA Score: 1 Anesthetic Plan: regional The patient is not a current smoker. NPO Status: adequate Administration of chronic beta mirna medication not planned. Monitoring plan: standard ASA. Postoperative analgesic plan: multimodal analgesia. Anesthetic Risks, Benefits, Alternatives, Personnel Discussed. Consent obtained from: patient.Patient / Surrogate agrees to blood products: No DNR status not reviewed with patient and/or family prior to surgery. Significant changes in the patient condition since the History and Physical, not otherwise documented in primary service progress note: no. Potential Anesthesia issues that may suggest increased risk of complications or contraindication to planned procedure: none. Vitals Value Taken Time BP 135/98 11/19/20 1136 Pulse 74 11/19/20 1136 Resp Temp 36.7 ?C (98.1 ?F) 11/19/20 1136 SpO2 100 % 11/19/20 1136 Facility-Administered Medications as of 11/19/2020 Medication Dose Route Frequency - lidocaine 10 mg/mL (1 %) 1-2 mg injection (XYLOCAINE) 0.1-0.2 mL INTRADERMAL PRN - lactated ringers iv infusion 5-30 mL/hr INTRAVENOUS CONTINUOUS - clindamycin iv piggyback 600 mg in D5W 50 mL (CLEOCIN) 600 mg INTRAVENOUS Pre-Op Once - [COMPLETED] acetaminophen 650 mg tab(s) (TYLENOL) 650 mg ORAL Pre-Op Once - scopolamine 1 mg over 3 days 1 Patch (TRANSDERM-SCOP) 1 Patch TRANSDERMAL ONCE - midazolam (PF) 2 mg injection (VERSED) 2 mg INTRAVENOUS Pre-Op Once Outpatient Medications as of 11/19/2020 Medication Sig - multivitamin (DAILY MULTI-VITAMIN) tablet Take 1 tablet by mouth once daily. - cholecalciferol, vitamin D3, (VITAMIN D3 50 MCG, 2,000 UNIT, GUMMIES) Take 1 Dose by mouth once daily. - Zinc 50 mg tab Take 50 mg by mouth once daily. I have interviewed and examined the patient. I have reviewed the medical record and/or the pre-anesthesia evaluation, pertinent labs, and test results. This contains updated information obtained within 48 hours of Surgery/Procedure. SIGNATURE: Vladimir Gan MD PATIENT NAME: Won Loaiza DATE: November 19, 2020 TIME: 12:21 PM CSN: [id number] [facility] NURSING PROGon 11-19-2020 NURSING PROG HNO ID: [id number] Author: José Ellis RN Service: Nursing Author Type: Registered Nurse Type: Nursing Progress Note Filed: 11/19/2020 1:17 PM Note Text: Dr. Gan at bedside for Left axillary nerve block. RN at bedside, pt monitored throughout, BP 122/68 Pulse (!) 58 Temp 36.7 ?C (98.1 ?F) (Temporal Artery) Resp 25 Ht 188 cm (6' 2) Wt 74.8 kg (165 lb) SpO2 97% BMI 21.18 kg/m? . Pt tolerated procedure without difficulty. [facility] OPERATIVE NOon 11-19-2020 OPERATIVE NO HNO ID: [id number] Author: Anderson Powell MD Service: Orthopaedic Surgery Author Type: Physician Type: Operative Report Filed: 11/19/2020 3:02 PM Note Text: OPERATIVE/PROCEDURE REPORT LOG ID: [id number] SURGERY/PROCEDURE DATE: 11/19/2020 INCISION/PROCEDURE START TIME: 1:43 PM INCISION CLOSE/PROCEDURE END TIME: 2:39 PM SURGEON(S)/PROCEDURAL IST(S) AND MUSIC INTERN(S): Surgeon(s) and Role: * Anderson Powell MD - Primary PA-C; Merly Lawrence PA-C SURGERY: Rightt hand, closed reduction and intramedullary fixation, fourth and fifth metacarpals. ANESTHESIA: Regional with supplemental. SURGERY/PROCEDURE DETAILS: This is a alvin who injured his right hand vs wall, had displaced shaft fracture of the fourth and angulated neck of the fifth metacarpal. Based on the position and multiple bones involved, surgical indications were suggested. The risks, benefits, alternatives and potential complications involving both operative and nonoperative treatment were reviewed with he consenting for surgery. On 11/19/2020, the patient was clearly identified in the preoperative area marked accordingly on the right fourth and fifth digits by myself. He was taken to the operative suite and placed in a supine position with an armboard on the left. He received 600 mg of Clindamycin in the IV within 1 hour of incision. A well-padded upper brachium tourniquet was applied with cotton padding and set at 250 mmHg but not yet inflated. All other bony landmarks were padded accordingly. The upper extremity was then sterilely prepped and draped in standard fashion. An appropriate timeout was conducted and all in the room were in agreement, signed consent form was on the chart, images were available for viewing and implants were in the room with representation in a mini fluoroscopic unit present. 2 small incisions were made directly over the MCP joints of the fourth and fifth digits. Skin flaps were created down to the extensor mechanism. The extensors of both digits were divided with a 15 blade to expose the the joint. With the head of the metacarpal exposed and with a reduction maneuver applied, a guidepin from the [employer] intramedullary screw kit was selected and placed in the upper third on a central position and this was passed across the fracture site. The 4th was pretty difficult to get 100% reduced, but we got it. It was then measured and drilled for. While holding reduction and rotational stability, a intramedullary screw was placed a 3.6 mm x 45 mm screw. With this secured, the small finger was then reduced, pinned, measured and drilled for. This time, a 40 mm 4.5 millimeter screw was selected and again it was placed down under anatomic and rotational reduction. I made sure both radiographically and visually that the screws were recessed appropriately. Both wounds were copiously irrigated with normal saline. The extensor mechanism was closed over the top of both joints using 4-0 Monocryl suture buried. Final skin closure after the tourniquet was taken down and hemostasis was observed was closed with 3?0 nylons in interrupted fashion. Xeroform gauze, sterile 4 x 4's, a volar ulnar gutter splint with a light Addy wrap and Ganesh bandage was applied. There were no complications during the procedure. Patient was safely awoken and transferred to the postanesthetic care unit in stable condition. PRE-OP/PRE-PROCEDURE DIAGNOSIS: Right, fourth and fifth metacarpal fractures, displaced. POST-OP/POST-PROCEDUR E DIAGNOSIS: Same as Preop ESTIMATED BLOOD LOSS: 0 ml SPECIMENS: None IMPLANTABLE DEVICES: Innomed IM screws 1x 4.5 and 1X 3.6mm x 40mm and 45mm, each DRAINS: None COMPLICATIONS: None PARTICIPATION IN SURGERY/PROCEDURE: I/primary surgeon/proceduralist performed the procedure with assistance. No qualified resident/fellow was available. transportation assistant was necessary for safe patient positioning, sterile prepping and draping. arm assistance, positioning and protection, soft tissue retraction, protection of vital structures and suture management during the case. Final skin closure, splint and bandage application and safe to the recovery room in stable condition. SIGNATURE: Anderson Powell MD PATIENT NAME: Won Loaiza DATE: November 19, 2020 TIME: 2:53 PM [facility] XR FLUOROSCOPYon 11-19-2020 XR FLUOROSCOPY * * *Final Report* * * DATE OF EXAM: Nov 19 2020 2:57PM MDR 5513 - XR FLUOROSCOPY / PROCEDURE REASON: ORIF METECARPAL-RIGHT * * * * Physician Interpretation * * * * XR FLUOROSCOPY HISTORY: Indication: ORIF METECARPAL-RIGHT ORIF METACARPALS- RIGHT TECHNIQUE: Fluoroscopy provided by the x-ray technologist to NAME who performed the procedure. Fluoroscopic Radiation Summary: Plane A, Air Kerma: 126.1 mGy Dose Area Product (DAP): 0.0 mGy*cm^2 Fluoro time: 4:52 min:sec Images obtained: 4 Spot film images/cine fluoroscopy images under fluoroscopic guidance. Images were stored in a permanent archive. Comparison: NONE. RESULT: Findings: Findings of insertion of metallic pins transfixing the fractures of the fourth and fifth carpals. Hardware and fragments in good alignment.. See procedural note in Epic for further discussion. IMPRESSION: As discussed above [employer]: MATTHEW Transcribe Date/Time: Nov 19 2020 3:19P Dictated by : JAYSHREE DEL CID DO This examination was interpreted and the report reviewed and electronically signed by: JAYSHREE DEL CID DO on Nov 20 2020 10:44AM EST [id number] [facility] XR Hand - right PA and Later al and Obliqueon 11-10-2020 IMPRESSION: Right fourth and fifth metacarpal fractures. [employer]: MATTHEW Transcribe Date/Time: Nov 10 2020 6:11P Dictated by : RADHA DE LEON MD This examination was interpreted and the report reviewed and electronically signed by: RADHA DE LEON MD on Nov 10 2020 6:12PM EST DIVISION OF RADIOLOGY * * *Final Report* * * DATE OF EXAM: Nov 10 2020 6:07PM WOX 5346 - XR HAND 3V PA/LAT/OBL RT / PROCEDURE REASON: Hand injuries, right, initial encounter * * * * Physician Interpretation * * * * XR HAND 3V PA/LAT/OBL RT CLINICAL HISTORY: Hand injuries, right, initial encounter COMPARISON: None. RESULT: Right fourth metacarpal fracture with angulation and displacement. Right fifth metacarpal fracture with angulation. Associated soft tissue swelling. Joint spaces are preserved. DIVISION OF RADIOLOGY Provider, Mica [facility] - 11/10/2020 * * *Final Report* * * DATE OF EXAM: Nov 10 2020 6:07PM WOX 5346 - XR HAND 3V PA/LAT/OBL RT / PROCEDURE REASON: Hand injuries, right, initial encounter * * * * Physician Interpretation * * * * XR HAND 3V PA/LAT/OBL RT CLINICAL HISTORY: Hand injuries, right, initial encounter COMPARISON: None. RESULT: Right fourth metacarpal fracture with angulation and displacement. Right fifth metacarpal fracture with angulation. Associated soft tissue swelling. Joint spaces are preserved. IMPRESSION IMPRESSION: Right fourth and fifth metacarpal fractures. [employer]: PSCB Transcribe Date/Time: Nov 10 2020 6:11P Dictated by : RADHA DE LEON MD This examination was interpreted and the report reviewed and electronically signed by: RADHA DE LEON MD on Nov 10 2020 6:12PM EST [facility] Radiology Study observation (narrative) [facility] XR Hand - right PA and Later al and ObliqueOrdered By: Ccf Provider on 11-10-2020 [facility] COVID 19, BAHMAN SENDOUTon 09-0 SARS-CoV-2 (COVID-19) RNA BAHMAN+probe Ql (Unsp spec) Not detected Normal Not Detected [facility] Comment on above: Order Comment: Karuna daniels for Exam: encounter for covid test Result Comment: This nucleic acid amplification test was developed and its performance characteristics determined by [employer]. Nucleic acid amplification tests include RT- PCR and TMA. This test has not been FDA cleared or approved. This test has been authorized by FDA under an Emergency Use Authorization (EUA). This test is only authorized for the duration of time the declaration that circumstances exist justifying the authorization of the emergency use of in vitro diagnostic tests for detection of SARS-CoV-2 virus and/or diagnosis of COVID-19 infection under section 564(b)(1) of the Act, 21 U.S.C. 360bbb-3(b) (1), unless the authorization is terminated or revoked sooner. When diagnostic testing is negative, the possibility of a false negative result should be considered in the context of a patient's recent exposures and the presence of clinical signs and symptoms consistent with COVID-19. An individual without symptoms of COVID-19 and who is not shedding SARS-CoV-2 virus would expect to have a negative (not detected) result in this assay. Performed By: #### L [id number] #### [facility] [address] [place], [place], [address] Urgent Care Visit Reporton 0 10-14-2020 Urgent Care Visit Report [facility] [address] [place] [address] [address] [place], [place] [address] OFFICE VISIT Date of Service: 10/14/20 MR#: [id number] Acct: [id number] Name: WON LOAIZA Srini Rep #: [id number] : 1980 Provider: MOI Garcia Age/Sex: 39/M Location: [facility] Status: Signed Intake Vital Signs 10/14/20 17:04 Height 6 ft Weight: 173 lb BMI 23.4 BP 132/76 H Blood Pressure Location Lt brachial Position Sitting Respiration 16 Pulse 102 H Pulse Source Monitor Temp 98.1 F Temp Source Temporal Pulse Oximetry (%) 98 Oxygen Delivery Method room air Intake Visit Reasons: COVID TEST FOR CONCERT Allergies amoxicillin Allergy (Verified 10/14/20 17:05) Hives cefaclor [From [facility]] Allergy (Verified 10/14/20 17:05) Hives Penicillins Allergy (Verified 10/14/20 17:05) Hives Medications NK 03/23/20 [History Confirmed 10/14/20] PFSH Social History Smoking Status: Current every day smoker HPI HPI Details: WON LOAIZA, is a 39 M who presents to the office today for request Covid screening test prior to a concert. He denies any symptoms. ROS Const Constitutional: Positive for other (6 system ROS completed with pertinent findings in HPI otherwise normal.) Exam Const General: cooperative and healthy appearing HENMT Head: normocephalic and atraumatic Ears: hearing grossly normal bilaterally Nose: external nose normal Face and sinus: normal facial exam and face symmetric Mouth: oral mucosae normal Throat: posterior oropharynx normal Eyes General: appearance normal, both eyes and all related structures Resp Effort Inspection: normal respiratory effort Auscultation: Bilateral: Clear to Auscultation Cardio Palpation: normal PMI Rate: regular rate Rhythm: regular rhythm Skin General: no rashes or lesions noted Neuro General: patient alert and CN's II-XI intact bilaterally Psych Appearance: grossly normal Mental Status: mental status grossly normal Coding Level of Care Code Off vis,new,level 3 Diagnoses Encounter for screening for COVID-19 Z11.52 Assessment and Plan Assessment and Plan (1) Encounter for screening for COVID-19: Status: Acute Orders: Orders: COVID 19, PCR SENDOUT 10/14/20 Z11.52 Plan - MOI Siu: Patient swab for Covid send out. Patient advised to get his results off of the patient portal. Patient verbalized understanding and agreement with all the above. 10/15/20 1305 Date David PRATER Cosigner Signature: Date (if applicable) CC: Normal [facility] Emergency Department Summary on 03-23-2020 Emergency Department Summary [facility] Medical Records Department [address] [place] [address] Emergency Department Summary 03/23/20 MR#: [id number] Acct: [id number] Name: WON LOAIZA Rep #: [id number] : 1980 39 From: Sacha Marti MD PCP: Care Physician, No Primary Status:PRE ER History of Present Illness Chief Complaint: Laceration Informant: Patient Onset: Hours - 1/2-hour prior to presentation Mechanism/Context: Blunt Injury, Fall Quality of Pain: - - No pain Location: Laceration superior and lateral right eyebrow Current Severity: Mild Maximum Severity: Moderate Worsened by: Bleeding from laceration Relieved by: Patient states his applied Hyperstat Associated Symptoms: Negative for: Parasthesias, Weakness, Loss of function, Inability to ambulate, Loss of consciousness, Amnesia Length of loss of consciousness: None Narrative: Double vision, blurred vision loss of vision. Denies headache. Denies nausea vomiting. Denies neck pain. He denies paresthesia, anesthesia medics. He denies chest pain or shortness of breath.He denies nausea or vomiting. He is not on an anticoagulant. Tetanus needs updated Tetanus Immunization: Unknown Prior similar symptoms: No Recent Illness/Hospitalizati on: No - Past Medical History (1) No significant past medical history Status: Acute Past Medical History - Allergies and Home Meds Allergies/Adverse Reactions: Allergies amoxicillin Allergy (Verified 03/23/20 19:46) Hives cefaclor [From Ceclor] Allergy (Verified 03/23/20 19:46) Hives Penicillins Allergy (Verified 03/23/20 19:46) Hives Primary Care Physician: Care Physician,No Primary [Primary Care Provider] - Prior records reviewed: No Past Medical History: None Surgical History: noncontributory Lives: Spouse/ Significant Other Smoking Status: Current every day smoker Alcohol: Occasional Drugs: None Review of Systems General: Denies: Chills, Fever, Malaise, Subjective, Sweats Eyes: Denies: Visual changes - bilaterally, Blurred Vision - bilaterally, Diplopia ENT: Reports: - - Negative epistaxis. Denies: Rhinorrhea, Sore throat Cardiovascular: Denies: Chest pain, Palpitations Respiratory: Denies: Dyspnea, Cough, Dyspnea on exertion Gastrointestinal: Denies: Nausea, Vomiting, Melena, Hematochezia Genitourinary: Denies: Hematuria Musculoskeletal: Denies: Myalgias, Arthralgias, Neck pain, Back pain, Swelling, Extremity Pain Skin: Reports: Wounds. Denies: Rash Neurological: Denies: Headache, Weakness, Parasthesia Hematologic: Denies: Easy bruising, Easy bleeding Physical Exam Vital Signs/Narrative: Vital Signs Temp Pulse Resp BP Pulse Ox 03/23/20 19:47 96.3 F L 78 16 134/91 H 98 Inital Vital Signs reviewed: Yes General: Well nourished, Well developed Head: Normocephalic, Trauma. Negative for: Atraumatic, Tenderness Eyes: Perrl, EOMI, - - No subconjunctival hemorrhage. There is no palpable depression.. Negative for: Pale conjunctiva, Scleral icterus ENT: TM's clear, No hemotympanum or drainage, No trauma. Negative for: Hemotympanum, Otorrhea, Nasal trauma, Nasal septal hematoma Neck: Nontender, Full ROM. Negative for: Spinal Tenderness, Paraspinal Tenderness Cardiovascular: Regular rate, Regular rhythm, No murmurs, Normal S1, Normal S2 Respiratory: No distress, CTA bilaterally, Chest nontender Rectal: Deferred Back: Nontender, - - Is no pain no patient of the pelvis.. Negative for: CVA Tenderness - Right, CVA Tenderness - Left Skin: Normal color, No rash, Trauma. Negative for: Cyanosis, Diaphoresis, Jaundice Neurological: Alert, Oriented x3, Cranial nerves II-XII grossly intact, Normal Strength, Normal Sensation, Normal Gait Psychological: Normal affect, Normal Mood Diagnostic/Tx/Re-eval - Medical Decision Making Has a gaping laceration that is 2 cm in length and will require repair. Tetanus was updated. Area was Nestabs with 1% lidocaine for local infiltration. Please read procedure note. Laceration No standard instances Length: 0.79 in - Is a raised nevus most lateral portion and superior Depth: Sub Q Shape: There is a small V shaped and linear laceration Prep: Ruth Ann Laceration Repair: Local Irrigated (ml): 125 Number of Sutures/[place]: 5 Stitch Description: Ethilon, Simple, 6-0 ED Disposition - Plan for ED Patient: Disposition: Home or Assisted Living Diagnosis: Laceration of forehead without complication Referrals: Care Physician,No Primary [Primary Care Provider] - Ingrid Spencer DO [STAFF PHYSICIAN] - 5 Days for suture removal Additional Instructions: Clean wound with peroxide and Q-tip 3 times a day then apply bacitracin ointment. What to do if you have Problems For any increased pain, shortness of breath, bleeding, nausea or vomiting, chest pain, or any unexpected problems, contact your Primary Care Provider. Call Doctors Registry (33 (more content not included)... Normal [facility] Cult Urineon 04-19-2019 Cult Urine Test performed at [facility] No growth <1,000 CFU/ml. Normal [facility] Comment on above: Performed By: #### C _URI #### [place] [id number] Vital Signs Date Time Vital Sign Value Performing Clinician Jose palacio 03-27-2024 15:27-0500 Body height 188 cm Kayla PRATER Work Phone: [facility] 03-27-2024 15:27-0500 Body mass index (BMI) [Ratio] 22.47 kg/m2 Kayla PRATER Work Phone: [facility] 03-27-2024 15:27-0500 Body weight 79.38 kg Kayla PRATER Work Phone: [facility] 03-27-2024 15:27-0500 Respiratory rate 20 /min Kayla PRATER Work Phone: [facility] 10-04-2022 17:02-0400 Body temperature 98.4 [degF] Nahum Gan APRN.PROJECT FINANCIAL ANALYST Work Phone: [facility] 10-04-2022 17:02-0400 Body weight 79.38 kg Nahum Gan APRN.PROJECT FINANCIAL ANALYST Work Phone: [facility] 10-04-2022 17:02-0400 Diastolic blood pressure 80 mm[Hg] Nahum King HAIR SPINNER.PROJECT FINANCIAL ANALYST Work Phone: [facility] 10-04-2022 17:02-0400 Heart rate 108 /min Nahum Gan HAIR SPINNER.PROJECT FINANCIAL ANALYST Work Phone: [facility] 10-04-2022 17:02-0400 Respiratory rate 16 /min Nahum Gan HAIR SPINNER.PROJECT FINANCIAL ANALYST Work Phone: [facility] 10-04-2022 17:02-0400 SaO2% (BldA) [Mass fraction] 98 % Nahum Gan HAIR SPINNER.PROJECT FINANCIAL ANALYST Work Phone: [facility] 10-04-2022 17:02-0400 Systolic blood pressure 134 mm[Hg] Nahum Gan HAIR SPINNER.PROJECT FINANCIAL ANALYST Work Phone: [facility] 05-10-2022 13:41-0400 Body temperature 99.61 [degF] Casa Rodriguez MD Work Phone: [facility] 05-10-2022 13:41-0400 Body weight 75.75 kg Casa Rodriguez MD Work Phone: [facility] 05-10-2022 13:41-0400 Diastolic blood pressure 80 mm[Hg] Casa Rodriguez MD Work Phone: [facility] 05-10-2022 13:41-0400 Heart rate 121 /min Casa Rodriguez MD Work Phone: [facility] 05-10-2022 13:41-0400 Respiratory rate 16 /min Casa Rodriguez MD Work Phone: [facility] 05-10-2022 13:41-0400 SaO2% (BldA) [Mass fraction] 99 % Casa Rodriguez MD Work Phone: [facility] 05-10-2022 13:41-0400 Systolic blood pressure 124 mm[Hg] Casa Rodriguez MD Work Phone: [facility] Encounters Encounter Date Encounter Type Care Provider Facility Start: 03-30-2024 End: 03-30-2024 Telephone encounter Kayla PRATER Work Phone: Urology Comment on above: Results Start: 03-29-2024 End: 05-29-2024 Follow-up encounter Kayla PRATER Work Phone: Urology Comment on above: Results Start: 03-28-2024 End: 03-28-2024 ambulatory KAYLA ARENAS Facility:[facility] Start: 03-28-2024 End: 03-28-2024 Subsequent hospital visit by physician [facility] (I-Stat) Work Phone: Cat Scan Comment on above: Right flank pain [R1 0.9] Start: 03-27-2024 End: 03-27-2024 Patient encounter procedure Kayla PRATER Work Phone: Urology Comment on above: Right flank pain (Pr imary Dx); Frequency of urination Start: 03-27-2024 End: 03-27-2024 ambulatory KAYLA ARENAS Facility:[facility] Start: 01-24-2023 End: 01-24-2023 ambulatory Ariane Popps [employer] AUTOMATIC I THREADING MACHINE FEEDER Work Phone: [facility] Comment on above: Acute medial meniscu s tear of left knee, subsequent encounter (Primary Dx); Chondromalacia of left patella Start: 01-21-2023 End: 01-21-2023 ambulatory Leoncio Golias PT Work Phone: [facility] Comment on above: Acute medial meniscu s tear of left knee, subsequent encounter (Primary Dx); Chondromalacia of left patella Start: 01-17-2023 End: 01-17-2023 ambulatory [employer] AUTOMATIC I THREADING MACHINE FEEDER Work Phone: [facility] Comment on above: Acute medial meniscu s tear of left knee, subsequent encounter (Primary Dx); Chondromalacia of left patella Start: 01-14-2023 End: 01-14-2023 ambulatory Leoncio Golias PT Work Phone: [facility] Comment on above: Acute medial meniscu s tear of left knee, subsequent encounter (Primary Dx); Chondromalacia of left patella Start: 01-10-2023 End: 01-10-2023 ambulatory Ariane Castro AUTOMATIC I THREADING MACHINE FEEDER Work Phone: [facility] Comment on above: Acute medial meniscu s tear of left knee, subsequent encounter (Primary Dx); Chondromalacia of left patella Start: 12-29-2022 End: 12-29-2022 ambulatory Leoncio Golmilad PT Work Phone: [facility] Comment on above: Acute medial meniscu s tear of left knee, subsequent encounter (Primary Dx); Chondromalacia of left patella Start: 10-04-2022 End: 10-04-2022 Subsequent hospital visit by physician [facility] Work Phone: Radiology Comment on above: Acute pain of left k nee [M25.562] Start: 10-04-2022 End: 10-04-2022 Patient encounter procedure Nahum Gan APRN.PROJECT FINANCIAL ANALYST Work Phone: [facility] Comment on above: Acute pain of left k nee (Primary Dx) Start: 05-10-2022 End: 05-10-2022 Patient encounter procedure Casa Rodriguez MD Work Phone: [facility] Comment on above: Acute right flank pa in (Primary Dx); Urinary frequency Start: 11-18-2021 End: 11-18-2021 ambulatory Kiley Gonzales HAIR SPINNER.PROJECT FINANCIAL ANALYST Work Phone: Telemedicine Comment on above: COVID-19 (Primary Dx ) Start: 11-18-2021 End: 11-18-2021 Telemedicine consultation with patient Kiley Gonzales APRN.PROJECT FINANCIAL ANALYST Work Phone: [facility] Start: 06-18-2021 End: 06-18-2021 Patient encounter procedure Anderson Powell MD Work Phone: Orthopaedics Comment on above: Closed displaced fra cture of shaft of fourth metacarpal bone of right hand, initial encounter (Primary Dx) Start: 06-16-2021 Orders Only Anderson Powell MD Work Phone: Orthopaedics Comment on above: Right hand pain (Citlalli ulisses Dx) Start: 11-10-2020 End: 11-10-2020 Subsequent hospital visit by physician Ho [facility] Work Phone: Radiology Comment on above: Hand injuries, right , initial encounter [S69.91XA] Procedures Date Procedure Procedure Detail Performing Clinician Start: 03-28-2024 Ct abdomen & pelvis w/o contrast material Kayla PRATER Work Phone: Start: 03-27-2024 Urnls dip stick/tabl et reagent auto microscopy Kayla PRATER Work Phone: Start: 03-27-2024 Urnls dip stick/tabl et rgnt auto w/o microscopy Kayla PRATER Work Phone: Start: 10-04-2022 Radiologic exam knee complete 4/more views Nahum Gan APRN.PROJECT FINANCIAL ANALYST Work Phone: Start: 05-10-2022 Urnls dip stick/tabl et rgnt auto w/o microscopy Casa Rodriguez MD Work Phone: Start: 11-10-2020 Radex hand minimum 3 views Nahum Gan APRN.PROJECT FINANCIAL ANALYST Work Phone: Plan of Treatment Date Care Activity Detail Author Start: 03-23-2030 Urine microalbumin profile DTaP,Tdap,Td Vaccine (2 - Td or Tdap) [facility] Start: 03-28-2024 End: 03-28-2024 Patient encounter procedure 03/28/2024 8:20 AM EST Appointment Cat Scan [address] [place] [address] STAT Right flank pain [R10.9] Cat Scan Comment on above: STAT Right flank pain [R10.9] Start: 10-09-2023 Covid-19 Vaccine ( season) Covid-19 Vaccine ( season) [facility] Start: 10-09-2023 Covid-19 Vaccine ( season) Covid-19 Vaccine ( season) [facility] Start: 10-09-2023 Influenza vaccination Influenza Vacc ine (#1) [facility] Start: 10-08-2022 Influenza vaccination [facility] Start: 02-07-2022 DEPRESSION ASSESSMENT DEPRESSION ASS ESSMENT [facility] Start: 11-18-2021 End: 12-02-2021 SARS-CoV-2 (COVID-19) RNA [Presence] in Respiratory specimen by BAHMAN with probe detection 2019 CORONAVIRUS Microbiology Routine COVID-19 Expected: 11/18/2021, Expires: 12/02/2021 [facility] Work Phone: Comment on above: Expected: 11/18/2021 , Expires: 12/02/2021 Start: 10-08-2021 Influenza vaccination [facility] Start: 02-07-2021 DEPRESSION ASSESSMENT DEPRESSION ASS [facility] Start: 2017 Lipid 1996 panel - Serum or Plasma Lipid Screening [facility] Start: 2017 Lipid panel Lipid Screening [facility] Start: 2017 LIPID SCREEN LIPID SCREEN [facility] Start: 2001 Hepatitis B Vaccine (1 of 3 - 19+ 3-dose series) Hepatitis B Vaccine (1 of 3 - 19+ 3-dose series) [facility] Start: 2001 Pneumococcal vaccination Pneumococcal Vaccine (1 of 2 - PCV) [facility] Start: 2001 Urine microalbumin profile DTAP,TDAP,TD (1 - Tdap) [facility] Start: 2000 Anxiety Screening Anxiety Screening [facility] Start: 2000 Depression Screening Depression Scre ening [facility] Start: 2000 HEPATITIS C SCREENING HEPATITIS C [facility] Start: 2000 Hepatitis C screening Hepatitis C [facility] Start: 2000 HIV SCREENING HIV SCREENING [facility] Start: 2000 HIV screening HIV Screening [facility] Start: 1994 Adult depression screening assessment DEPRESSION SCREENING [facility] Start: 1988 PNEUMOCOCCAL (1 - PCV) PNEUMOCOCCAL (1 - PCV) [facility] Start: 1988 Pneumococcal vaccination [facility] Start: 11-16-1987 COVID-19 VACCINE (#1) COVID-19 VACCI NE (#1) [facility] Start: 05-17-1983 COVID-19 VACCINE (#1) COVID-19 VACCI NE (#1) [facility] Start: 1982 HEPATITIS B (1 of 3 - 3-dose series) HEPATITIS B (1 of 3 - 3-dose series) [facility] Start: 1982 Hepatitis B Vaccine (1 of 3 - 3-dose series) Hepatitis B Vaccine (1 of 3 - 3-dose series) [facility] Bacteria identified in Urine by Culture BACTERIAL CULTURE, URINE Microbiology Routine Right flank pain 03/27/2024 3:59 PM EST [facility] End: 04-26-2025 CT Abdomen and Pelvis WO contrast CT FLANK WO IVCON Radiology STAT Right flank pain 1 Occurrences starting 03/27/2024 until 04/26/2025 [facility] Comment on above: 1 Occurrences starti ng 03/27/2024 until 04/26/2025 UA DIP, URINE (POC) UA DIP, URIN E (POC) Lab Routine Frequency of urination Ordered: 03/27/2024 [facility] Work Phone: Comment on above: Ordered: 03/27/2024 End: 07-16-2022 XR HAND GENERAL 3V PA/LAT/OBL RIGHT XR HAND GENERAL 3V PA/LAT/OBL RIGHT Radiology Routine Right hand pain 1 Occurrences starting 06/16/2021 until 07/16/2022 [facility] Work Phone: Comment on above: 1 Occurrences starti ng 06/16/2021 until 07/16/2022 [facility] Payers Date Payer Category Payer Private Health Insurance MMO SUP ERMED PPO Member Subscriber Plan / Payer (Effective 2018-Present) Name: Won Loaiza Relation to Subscriber: Self Name: Won Loaiza Payer ID: Not on file Type: PPO Address: [place] [id number] 2018 Unknown MMO MMO SU[employer] PLUS [id number] 2018-Present [phone] [address] [place] [address] O [id number] 2018 Unknown [id number] 2018 Unknown [id number] Social History Date Type Detail Facility Start: 04-16-2019 End: 10-04-2022 Tobacco smoking status NHIS Smokes tobacco daily [facility] Work Phone: History of tobacco use Cigarette Smoker [facility] Work Phone: Start: 04-16-2019 End: 12-23-2022 Cigarettes smoked current (pack per day) - Reported 0.5 [facility] Start: 04-16-2019 End: 10-04-2022 Tobacco use and exposure Smokeless tobacco non-user [facility] Work Phone: Start: 11-10-2020 End: 01-05-2021 Alcohol intake Current drinker of alcohol (finding) [facility] Start: 04-19-2019 History SDOH Alcohol Frequency 4 [facility] Start: 04-19-2019 History SDOH Alcohol Std Drinks 99 [facility] Start: 11-18-2020 History SDOH Alcohol Comment 2-3 beers/day weekdays 10-11 shot vodka weekend per day [facility] Start: 1980 Sex Assigned At Male [facility] Start: 05-27-2021 End: 11-18-2021 Exposure to SARS-CoV-2 (event) Not sure [facility] Start: 04-19-2019 End: 12-23-2022 Alcohol Use Disorder Identification Test - Consumption [AUDIT-C] [facility] How often to you hav e a drink containing alcohol? 2-3 time sa week [facility] How many standard dr inks containing alcohol do you have on a typical day? Not asked [facility] Start: 11-18-2020 Gender identity Identifies as male gender (finding) [facility] Start: 11-18-2020 Sexual orientation Heterosexual (finding) [facility] Start: 03-27-2024 Alcoholic beverage intake Ex-drinker (finding) [facility] ana Medical Equipment Procedure Code Equipment Code Equipment Original Text Equipment Identifier Dates Nail Innate 3.6m m Stainless Steel 50mm Intramedullary Anatomic Reduction - [id number] Start: 11-19-2020 Nail Innate 4.5m m Stainless Steel 40mm Intramedullary Anatomic Reduction - [id number] Start: 11-19-2020 Clinical Notes 11-10-2020 to 04-03-2024 Result Encounter Note - Elliot Osuna MA - 04/03/2024 8:47 AM ESTResult Encounter Note - Elliot Osuna MA - 04/03/2024 8:47 AM ESTReef Cierra Howell, RT(R) - 03/28/2024 8:20 AM EST Note Date & Type Note Facility 04-03-2024 Progress note Formatting of t his note might be different from the original. Patient read/viewed [facility] message from provider for resutls [facility] 04-03-2024 Miscellaneous Notes Patient read/viewed [facility] message from provider for resutls Left patient another voicemail to call back for results. Halina James MA Images from the original note were not included. Left patient a voicemail to call back for results. YEISON Neil Michelle, PA [facility] Exchange Clinical Pool Please let patient know CT shows no evidence of kidney stones. If he is having persistent pain, he should follow up with PCP. Skip Mosqueda documented in this encounter [facility] 04-02-2024 Telephone encounter Note Left patient another voicemail to call back for results. Halina James MA [facility] 03-30-2024 Telephone encounter Note Left message with information asked ot to call back office if any questions Houston Cruz MA [facility] 03-30-2024 Miscellaneous Notes Left message with information asked ot to call back office if any questions Houston Cruz MA Pt called asking for a doctor note for pt's job/note was faxed [phone]/conformation of note sent was received Houston Cruz MA Pt called and was asking for a call to go over recent CT results Houston Cruz MA documented in this encounter [facility] 03-30-2024 Telephone encounter Note Pt called asking for a doctor note for pt's job/note was faxed [phone]/conformation of note sent was received Houston Cruz MA [facility] 03-30-2024 Telephone encounter Note Pt called and was asking for a call to go over recent CT results Houston Cruz MA [facility] 03-29-2024 Telephone encounter Note Images from the original note were not included. Left patient a voicemail to call back for results. YEISON Neil Michelle, PA [facility] Exchange Clinical Pool Please let patient know CT shows no evidence of kidney stones. If he is having persistent pain, he should follow up with PCP. Skip Mosqueda [facility] 03-28-2024 History of Presen t illness Narrative Radiology Service Progress Note PATIENT NAME: Won Loaiza DATE OF SERVICE: March 28, 2024 TIME: 12:56 PM PATIENT IDENTITY VERIFICATION COMPLETED USING TWO (2) IDENTIFIERS: Name and Date of confirmed by patient verbally. FALL SCREENING: Has the patient had 2 falls in the last year or 1 fall with injury or currently using an Ambulatory Assistive Device (Walker, Cane, Wheelchair, Crutches, etc.)? No PATIENT GENDER DATA: Assigned male at PATIENT RELEVANT IMPLANT DATA REVIEWED: Yes PATIENT PRESENTS WITH AN IMPLANTABLE OR ATTACHED MAINTENANCE ASSISTANT: No RADIOLOGY DEPARTMENT: CT; Exam(s) Completed: Flank Study PERIPHERAL IV DATA: Not applicable SIGNED BY: RT Margo(Denise) March 28, 2024 12:56 PM documented in this encounter [facility] 03-28-2024 Note HNO ID: [id number] Author: CIERRA XIONG RT(Denise) Service: ? Author Type: Denier Control Operator Type: Progress Notes Filed: 03/28/2024 12:56 Note Text: Radiology Service Progress Note PATIENT NAME: Won Loaiza DATE OF SERVICE: March 28, 2024 TIME: 12:56 PM PATIENT IDENTITY VERIFICATION COMPLETED USING TWO (2) IDENTIFIERS: Name and Date of confirmed by patient verbally. FALL SCREENING: Has the patient had 2 falls in the last year or 1 fall with injury or currently using an Ambulatory Assistive Device (Walker, Cane, Wheelchair, Crutches, etc.)? No PATIENT GENDER DATA: Assigned male at PATIENT RELEVANT IMPLANT DATA REVIEWED: Yes PATIENT PRESENTS WITH AN IMPLANTABLE OR ATTACHED MAINTENANCE ASSISTANT: No RADIOLOGY DEPARTMENT: CT; Exam(s) Completed: Flank Study PERIPHERAL IV DATA: Not applicable SIGNED BY: RT Margo(R) March 28, 2024 12:56 PM [facility] 03-27-2024 Note HNO ID: [id number] Author: KAYLA ARENAS PA Service: ? Author Type: Physician Patroller Type: Progress Notes Filed: 03/27/2024 16:28 Note Text: [facility] HISTORY OF PRESENT ILLNESS The patient is 43 year old male with a history of urinary frequency who presents for follow up Patient was last seen in urology one year ago for acute left flank pain. He was started on Flomax 0.4 mg daily. However Interval History Patient started experiencing right flank pain one week ago. He also has decreased urine stream over the past week. No blood in the urine, fever or chills DATA REVIEW LABS No results found for: CREAT No results found for: PSA == PAST MEDICAL HISTORY/COMORBIDITIES == PAST MEDICAL HISTORY Diagnosis Date NEGATIVE MEDICAL HISTORY PAST SURGICAL HISTORY Procedure Laterality Date PAST SURGICAL HISTORY OF tonsillectomy TONSILLECTOMY HX REVIEW OF SYSTEMS REVIEW OF SYSTEMS: CONSTITUTIONAL: No fevers, chills, nightsweats, unintended weight loss GI: No dysphagia/odynophagia, problematic reflux, constipation, diarrhea, changes in stool habits, hematochezia, melena. : No new urinary complaints, including dysuria, gross hematuria or pyuria. INTEGUMENTARY: No new skin changes (rash, new or changing mole, new growth) All other systems were reviewed and are negative. PHYSICAL EXAM GENERAL APPEARANCE: Alert and oriented, No acute distress. HEENT: EOM, pupils equal, round and reactive. NECK: Normal ROM. LUNGS: Normal effort CARDIAC: Well perfused. ABDOMEN: Soft, non-tender, no rigidity. Non-distended. No CVAT MUSCULOSKELETAL: No edema. Normal ROM in extremities. NEUROLOGIC: Gait normal. No focal deficits. SKIN: Skin color normal. No suspicious rashes or lesions. ASSESSMENT AND PLAN This is a 43 year old male who presented today for follow up of acute right flank pain. No CVAT Plan: - CT Flank sometime soon - Check culture and UA microscopy - Start Flomax 0.4 mg - Further plans pending this Kayla Arenas PA-C [facility] 03-27-2024 History of Presen t illness Narrative [facility] HISTORY OF PRESENT ILLNESS The patient is 43 year old male with a history of urinary frequency who presents for follow up Patient was last seen in urology one year ago for acute left flank pain. He was started on Flomax 0.4 mg daily. However Interval History Patient started experiencing right flank pain one week ago. He also has decreased urine stream over the past week. No blood in the urine, fever or chills DATA REVIEW LABS No results found for: CREAT No results found for: PSA == PAST MEDICAL HISTORY/COMORBIDITIES == PAST MEDICAL HISTORY Diagnosis Date NEGATIVE MEDICAL HISTORY PAST SURGICAL HISTORY Procedure Laterality Date PAST SURGICAL HISTORY OF tonsillectomy TONSILLECTOMY HX REVIEW OF SYSTEMS REVIEW OF SYSTEMS: CONSTITUTIONAL: No fevers, chills, nightsweats, unintended weight loss GI: No dysphagia/odynophagia, problematic reflux, constipation, diarrhea, changes in stool habits, hematochezia, melena. : No new urinary complaints, including dysuria, gross hematuria or pyuria. INTEGUMENTARY: No new skin changes (rash, new or changing mole, new growth) All other systems were reviewed and are negative. PHYSICAL EXAM GENERAL APPEARANCE: Alert and oriented, No acute distress. HEENT: EOM, pupils equal, round and reactive. NECK: Normal ROM. LUNGS: Normal effort CARDIAC: Well perfused. ABDOMEN: Soft, non-tender, no rigidity. Non-distended. No CVAT MUSCULOSKELETAL: No edema. Normal ROM in extremities. NEUROLOGIC: Gait normal. No focal deficits. SKIN: Skin color normal. No suspicious rashes or lesions. ASSESSMENT & PLAN This is a 43 year old male who presented today for follow up of acute right flank pain. No CVAT Plan: - CT Flank sometime soon - Check culture and UA microscopy - Start Flomax 0.4 mg - Further plans pending this Kayla Arenas, PA-C documented in this encounter [facility] 01-24-2023 History of Presen t illness Narrative Episode Visit Count: 7 Therapist That Will Accept/Oversee The Plan Of Care: Leoncio Clark PT Start of Care Date: 12/23/22 Onset Date: 09/27/22 Patient Identified by Name and Date of : Yes REHABILITATION AND SPORTS THERAPY PHYSICAL THERAPY TREATMENT NOTE ASSESSMENT: Won Loaiza tolerated the session with fatigue and expected muscle soreness. He demonstrated improvements in BLE strengthening without increase in knee pain. The patient will continue to benefit from ongoing skilled physical therapy to progress toward set goals. PLAN FOR NEXT VISIT: Continue with previously established plan of care for L knee and add therex for R LE as tolerated. SUBJECTIVE: Pt reports that his L knee is feeling pretty good today, his R knee is feeling iffy, was on it a lot yesterday. Pain: Pain Pain Level: 0 Pain Location: Knee - Left Pain Level 2: 2 Pain Location 2: Knee - Right OBJECTIVE MEASURES WITH LEVEL OF FUNCTION: TREATMENT: Therapeutic Exercise: 1: Upright bike seat #11 x6 miniutes resistance level 3 2: L sidelying R hip abd SLR 2x10 3: L sidelying R hip abduction LE circles 2x10 4: L sidelying R hip abduction marching 2x10 5: B clamshells 2x10 6: B clamshells 2x10 7: L leg press 40# 3x15 8: R leg press 40# 3x15 9: B(separate) HS curl machine 50# 3x10 Skilled Intervention: Patient was educated in proper exercise technique and purpose for exercises. Skilled judgment was used in selection of appropriate interventions. Correct performance of therapeutic exercises was facilitated with verbal and visual cuing. Billing Therapeutic Exercise Treatment Minutes: 43 Skilled Treatment Time Minutes (timed and untimed codes): 43 Total Session Time (minutes): 43 Session Start Time : 1356 Session Stop Time : 1439 SOUMYA Hayward PT documented in this encounter [facility] 01-21-2023 History of Presen t illness Narrative Episode Visit Count: 6 Therapist That Will Accept/Oversee The Plan Of Care: Leoncio Clark PT Start of Care Date: 12/23/22 Onset Date: 09/27/22 Patient Identified by Name and Date of : Yes REHABILITATION AND SPORTS THERAPY PHYSICAL THERAPY PROGRESS REPORT PLAN OF CARE UPDATE: Assessment: Won Loaiza demonstrates significant improvement in rising from a chair, walking, stair negotiation, and squatting . He has progressed toward goals. Patient continues to present with impairments in overall function, strength, symptom management, tissue tenderness, working and stairs that interfere with stair negotiation, working, squatting . Current prognosis is Excellent due to: current objective clinical presentation, good overall health status, acuteness of condition, positive past response to therapy, good support system/ coping skills . He will benefit from continued skilled therapy services to meet the updated goals for this plan of care as noted below. Updated: 01/21/23 Goals for Episode of Care: created on 12/23/22 through 02/17/23 [place] in home exercise program. - MET, will continue and progress to tolerance. Patient will decrease pain to 0/10 at rest and with functional activities to allow patient to improve ambulation. - MET, will monitor Patient will increase active ROM of L knee to WFL, symmetrical and pain-free to allow pt to to improve performance of ADLs and to improve gait mechanics / gait pattern . - MET, will monitor Patient will demonstrate increase in L LE strength to 5/5 during manual muscle testing in order to improve function for prior functional tasks. - Partially MET, will continue B Perform walking, stairs, working and playing drums without pain. - Partially MET, will continue Normal gait. - MET, will monitor Reciprocal stair negotiation. - Partially MET, will continue Patient Goals: get back to prior functional level. - Partially MET, will continue Patient Goals: get back to prior functional level. Planned Interventions, Frequency, and Duration: 2x/week, 4 weeks Total Number of Visits Planned: 8 Patient to be seen for Therapeutic exercise ([id number]), Neuromuscular re-education ([id number]), Manual therapy (09882), Therapeutic activities (53375), Self-fci management (96069), Gait Training ([id number]), Patient/Family/Caregiver Education, General Conditioning PLAN FOR NEXT VISIT: Continue with previously established plan of care for L knee and add therex for R LE as tolerated. SUBJECTIVE: Pt reports seeing his referring provider earlier today. He reports that his physician was very pleased with his overall recovery in L knee. He recommended a continuation of PT and pt is off of work for an additional 2 weeks. Pt's tentative return to work date is 02/08/23. Pt is still having R knee pain as well. Referring provider examined his R knee and recommended PT but no other intervention is planned for R knee and no concerns exist in regards to structural damage. Pt feels that R knee is improving and L knee is definitely improving daily. He is very pleased with the progress of L knee. He reports compliance with HEP 3-4x day. Patient Goals: get back to prior functional level. Functional Limitations: stair negotiation, working, squatting Prior Level of Function: Independent without limitations Intake Information: Prescription present (new order received for R knee) Pain: Pain Pain Level: 0 Pain Location: Knee - Left Description: (no pain to start today) Frequency: Intermittent Additional Pain Information : Location 2 Pain Level 2: 1 (02/16 if that) Pain Location 2: Knee - Right Description 2: Dull Frequency 2: Intermittent Post Treatment Pain Post Treatment Pain Level: No Change Post Treatment Pain Location: Knee - Right, Knee - Left Post Treatment Pain Description: (fatigue only) Post Treatment Symptoms: After session, pt reported fatigue from a good workout but he denied any increase in pain. PROMIS Scales Higher is Better 01/21/2023 12/23/2022 Phys Func - Score 47 (within normal limits) 38 (moderate dysfunction) Phys Func - Percentile 38% 12% Self-Eff Symptom - Score 44 (Average) 44 (Average) Self-Eff Symptom - Percentile 27% 27% T-scores: mean of general population = 50. 5 points is clinically meaningfully difference Percentiles provide an indication of how the patient's score ranks in relation to the general population. Higher percentile rankings indicate better function/quality of life. 50th percentile is the average of the general population and indicates half of respondents had a worse score. OBJECTIVE MEASURES WITH LEVEL OF FUNCTION: Knee Observations R Circumference 6 inches above mid-patella (inches): 17.75 inches R Circumference mid patella (inches): 14.5 inches R Circumference 6 inches below mid-patella (inches): 13.25 inches L Circumference 6 inches above mid-patella (inches): 17.5 inches L Circumference mid patella (inches): 15 inches L Circumference 6 inches below mid-patella (inches): 13 inches LE AROM R LE AROM: supine L LE AROM: supine R Knee Extension: 5 Degrees R Knee Flexion: 157 Degrees L Knee Extension: 7 Degrees L Knee Flexion: 158 Degrees LE Strength R Hip ABduction: (Pt reports and demonstrates significant fatigue) R Knee Extension (L3): 5/5 R Knee Flexion: 5/5 L Hip ABduction: (Pt reports and demonstrates significant fatigue) L Knee Extension (L3): 5/5 L Knee Flexion: 5/5 Gait Gait Observation: Normal at this time Stairs: Pt can ascend and descend 4 steps reciprocally but he does report and demonstrate lack of confidence descending. TREATMENT: Therapeutic Exercise: 1: Upright bike seat #11 x6 miniutes resistance level 3 2: L quad sets 2 second hold 3x10 3: L heel slides 3x10 4: *L sidelying R hip abd SLR 2x10 5: *L sidelying R hip abduction LE circles 2x10 6: *L sidelying R hip abduction marching 2x10 7: *B clamshells 2x10 8: B(separate) HS curl machine 50# 3x10 9: L leg press 40# 3x15 10: R leg press 40# 3x15 11: Re-assessment results reviewed with pt. Skilled Intervention: Patient was educated in proper exercise technique and purpose for exercises. Reviewed and educated patient on additions/changes for home exercise program as above (*). Skilled judgment was used in selection of appropriate interventions. Provided written instruction for home exercise program to facilitate proper performance and compliance. Correct performance of therapeutic exercises was facilitated with verbal, visual, and tactile cuing. Patient education as noted. Billing Therapeutic Exercise Treatment Minutes: 50 Skilled Treatment Time Minutes (timed and untimed codes): 50 Total Session Time (minutes): 50 Session Start Time : 1400 Session Stop Time : 1450 Leoncio Clark PT Program_ID:[id number] Access Code: [email or web address] URL: [email or web address]/ Date: 01-21-2023 Prepared By: Leoncio Clark Program Notes Exercises - Supine Ankle Pumps - 10 x daily - 7 x weekly - 1 sets - 100 reps - Long Sitting Quad Set with Towel Roll Under Heel - 3 x daily - 7 x weekly - 2 sets - 10 reps - Supine Heel Slides - 3 x daily - 7 x weekly - 2 sets - 10 reps - Active Straight Leg Raise with Quad Set - 3 x daily - 7 x weekly - 2 sets - 10 reps - Sidelying Hip Abduction - 3 x daily - 7 x weekly - 2 sets - 10 reps - Sidelying Hip Abduction - 2 x daily - 7 x weekly - 2 sets - 10 reps - Sidelying Bent Knee Hip Flexion - 2 x daily - 7 x weekly - 2 sets - 10 reps - Sidelying Hip Circles - 2 x daily - 7 x weekly - 2 sets - 10 reps - Clamshell - 2 x daily - 7 x weekly - 2 sets - 10 reps documented in this encounter [facility] 01-17-2023 History of Presen t illness Narrative Episode Visit Count: 5 Therapist That Will Accept/Oversee The Plan Of Care: Leoncio Clark PT Start of Care Date: 12/23/22 Onset Date: 09/27/22 Patient Identified by Name and Date of : Yes REHABILITATION AND SPORTS THERAPY PHYSICAL THERAPY TREATMENT NOTE ASSESSMENT: Won Loaiza tolerated the session with fatigue and expected muscle soreness. He demonstrated improvements in technique with squats. The patient will continue to benefit from ongoing skilled physical therapy to progress toward set goals. PLAN FOR NEXT VISIT: Continue with strengtheining. Consider BFR per physicians reccomendations. SUBJECTIVE: Pt reports that his L knee is feeling okay. He is starting to have same sensations and noises in R knee like it was in the L knee prior to having surgery. Pt to RTW 01/24/23. Pain: Pain Pain Level: 0 Pain Location: Knee - Left Post Treatment Pain Post Treatment Pain Level: Better Post Treatment Pain Location: Knee - Left OBJECTIVE MEASURES WITH LEVEL OF FUNCTION: TREATMENT: Therapeutic Exercise: 1: Upright bike seat #11 x5 miniutes (Pt provided an update on his condition and plan of care reviewed.) 2: L heel slides x10 3: L HS curl machine 40# 3x10 4: L leg press 40# 3x10 5: lateral step ups on and over dome side of BOSU 2x10 at // bars 6: L Forward step ups on BOSU with R high march 2x10 7: Squats x10 8: SLR 2x20 LLE 9: R sidelying L hip abd SLR 2x10 10: R sidelying L hip abduction marching 2x10 Skilled Intervention: Patient was educated in proper exercise technique and purpose for exercises. Skilled judgment was used in selection of appropriate interventions. Correct performance of therapeutic exercises was facilitated with verbal and visual cuing. Billing Therapeutic Exercise Treatment Minutes: 42 Skilled Treatment Time Minutes (timed and untimed codes): 42 Total Session Time (minutes): 42 Session Start Time : 1358 Session Stop Time : 1440 SOUMYA Hayward PT documented in this encounter [facility] 01-14-2023 History of Presen t illness Narrative Episode Visit Count: 4 Therapist That Will Accept/Oversee The Plan Of Care: Leoncio Clark PT Start of Care Date: 12/23/22 Onset Date: 09/27/22 Patient Identified by Name and Date of : Yes REHABILITATION AND SPORTS THERAPY PHYSICAL THERAPY TREATMENT NOTE ASSESSMENT: Won Loaiza tolerated the session with fatigue, expected muscle soreness, and no issues. He demonstrated improvements in gait, ROM, strength and exercise tolerance. The patient will continue to benefit from ongoing skilled physical therapy to progress toward set goals. PLAN FOR NEXT VISIT: Continue with active therex for L knee strengthening, progressing to tolerance. Consider use of BFR pending recommendations from referring provider. SUBJECTIVE: Pt reports that overall his L knee is doing well. He reports that his L knee feels the same or possibly slightly better than last session 01/10/23. He does report developing mild pain in R knee and therefore he went to urgent care at [facility] in [place] on 01/12/23. He reports that x-rays were negative and no specific treatment recommended for R knee. He reports compliance with HEP 3x day. Pain: Pain Pain Level: 0 Pain Location: Knee - Left Description: (no pain to start but he did have some mild pain in L knee when he woke up this morning) Frequency: Intermittent Post Treatment Pain Post Treatment Pain Level: No Change Post Treatment Pain Location: Knee - Left Post Treatment Symptoms: After session, pt reported fatigue from a good workout but he denied any increase in pain OBJECTIVE MEASURES WITH LEVEL OF FUNCTION: LE AROM L LE AROM: supine L Knee Extension: 1 Degrees L Knee Flexion: 153 Degrees LE Strength L LE Strength: 20 SLR without quad lag supine Gait Gait Observation: Normal at this time TREATMENT: Therapeutic Exercise: 1: Upright bike seat #11 x5 miniutes (Pt provided an update on his condition and plan of care reviewed.) 2: L Heel slides 2x 10 3: lateral step ups on and over dome side of BOSU 2x10 at // bars 5: SLR 2x20 LLE emphasis on avoiding quad lag 6: Mini squats at // bars 2x10 with emphasis on form and avoiding knee flexion past toes using mirror. (lots of cues and demonstration for proper technique) 7: *R sidelying L hip abd SLR 2x10 8: *R sidelying L hip abduction LE circles 2x10 9: *R sidelying L hip abduction marching 2x10 10: L HS curl machine 40# 3x10 11: L leg press 40# 3x10 Skilled Intervention: Patient was educated in proper exercise technique and purpose for exercises. Reviewed and educated patient on additions/changes for home exercise program as above (*). Skilled judgment was used in selection of appropriate interventions. Provided written instruction for home exercise program to facilitate proper performance and compliance. Correct performance of therapeutic exercises was facilitated with verbal, visual, and tactile cuing. Patient education as noted. Billing Therapeutic Exercise Treatment Minutes: 45 Skilled Treatment Time Minutes (timed and untimed codes): 45 Total Session Time (minutes): 45 Session Start Time : 1400 Session Stop Time : 1445 Leoncio Clark PT Program_ID:[id number] Access Code: [email or web address] URL: [email or web address]/ Date: 01-14-2023 Prepared By: Leoncio Clark Program Notes Exercises - Supine Ankle Pumps - 10 x daily - 7 x weekly - 1 sets - 100 reps - Long Sitting Quad Set with Towel Roll Under Heel - 3 x daily - 7 x weekly - 2 sets - 10 reps - Supine Heel Slides - 3 x daily - 7 x weekly - 2 sets - 10 reps - Active Straight Leg Raise with Quad Set - 3 x daily - 7 x weekly - 2 sets - 10 reps - Sidelying Hip Abduction - 3 x daily - 7 x weekly - 2 sets - 10 reps - Sidelying Hip Abduction - 2 x daily - 7 x weekly - 2 sets - 10 reps - Sidelying Bent Knee Hip Flexion - 2 x daily - 7 x weekly - 2 sets - 10 reps - Sidelying Hip Circles - 2 x daily - 7 x weekly - 2 sets - 10 reps Program_ID:[id number] Access Code: [email or web address] URL: [email or web address] Date: 01-14-2023 Prepared By: Leoncio Clark Program Notes Exercises - Supine Ankle Pumps - 10 x daily - 7 x weekly - 1 sets - 100 reps - Long Sitting Quad Set with Towel Roll Under Heel - 3 x daily - 7 x weekly - 2 sets - 10 reps - Supine Heel Slides - 3 x daily - 7 x weekly - 2 sets - 10 reps - Active Straight Leg Raise with Quad Set - 3 x daily - 7 x weekly - 2 sets - 10 reps - Sidelying Hip Abduction - 3 x daily - 7 x weekly - 2 sets - 10 reps - Sidelying Hip Abduction - 1 x daily - 7 x weekly - 3 sets - 10 reps - Sidelying Bent Knee Hip Flexion - 1 x daily - 7 x weekly - 3 sets - 10 reps - Sidelying Hip Circles - 1 x daily - 7 x weekly - 3 sets - 10 reps documented in this encounter [facility] 01-10-2023 History of Presen t illness Narrative Episode Visit Count: 3 Therapist That Will Accept/Oversee The Plan Of Care: Leoncio Clark PT Start of Care Date: 12/23/22 Onset Date: 09/27/22 Patient Identified by Name and Date of : Yes REHABILITATION AND SPORTS THERAPY PHYSICAL THERAPY TREATMENT NOTE ASSESSMENT: Won Loaiza tolerated the session with fatigue, decreased symptoms, and expected muscle soreness. He demonstrated difficulty with mini squats,given STS for HEP. The patient will continue to benefit from ongoing skilled physical therapy to progress toward set goals. PLAN FOR NEXT VISIT: Consider possible use of BFR per physicians guidelines. SUBJECTIVE: Pt reports that his knee is feeling pretty good today.Pt completing 2-3 rounds of exercises per day. Pt to RTW 01/23/23. Pt apologizes for missing last few appointments, he was not feeling well. Pt has knot at lateral incision site.. Pain: Pain Pain Level: 0 Pain Location: Knee - Left Description: Stiffness Post Treatment Pain Post Treatment Pain Location: Knee - Left Post Treatment Symptoms: it feels loser OBJECTIVE MEASURES WITH LEVEL OF FUNCTION: LE AROM L Knee Flexion: 142 Degrees TREATMENT: Therapeutic Exercise: 1: Upright bike seat #11 x5 miniutes (1:1 throughout. Disccused performing functional taks, such as playing his drums and using foot pedals.) 2: Heel slides x 10 3: L forward step ups on 6 inch step 2x10 4: Lateral step ups on 4 inch step LLE 2x10 5: CR in standing 2x10 B 6: Mini squats at // bars 1x10, 1x5 (flares up lateral knee a little) 7: *STS x10 8: SLR 3x10 LLE 9: LAQ 3x10 10: Standing HS curls 2x10 Skilled Intervention: Patient was educated in proper exercise technique and purpose for exercises. Reviewed and educated patient on additions/changes for home exercise program as above (*). Skilled judgment was used in selection of appropriate interventions. Correct performance of therapeutic exercises was facilitated with verbal and visual cuing. Billing Therapeutic Exercise Treatment Minutes: 42 Skilled Treatment Time Minutes (timed and untimed codes): 42 Total Session Time (minutes): 42 Session Start Time : 1400 Session Stop Time : 1442 SOUMYA Hayward PT documented in this encounter [facility] 12-29-2022 History of Presen t illness Narrative Episode Visit Count: 2 Therapist That Will Accept/Oversee The Plan Of Care: Leoncio Clark PT Start of Care Date: 12/23/22 Onset Date: 09/27/22 Patient Identified by Name and Date of : Yes REHABILITATION AND SPORTS THERAPY PHYSICAL THERAPY TREATMENT NOTE ASSESSMENT: Won Loaiza tolerated the session with fatigue, decreased symptoms, expected muscle soreness, and no issues. He demonstrated improvements in gait, pain, ROM and exercise tolerance. The patient will continue to benefit from ongoing skilled physical therapy to progress toward set goals and to continue with post-operative protocol. PLAN FOR NEXT VISIT: Review, correct and progress HEP to tolerance. Progress therex to tolerance to address ROM, strength and function of L LE. Continue gait training until normalized. SUBJECTIVE: Pt reports that he has been working on his gait and doing the things he was advised to do at his evaluation. He also reports compliance with HEP at least 2x day. He feels that his overall condition is much improved. He also reports noticing that his ROM is increasing in L knee. He reports that he has only used his crutch once since evaluation 6 days ago. Pain: Pain Pain Level: 0 Pain Location: Knee - Left Description: Stiffness (no pain to start today.) Frequency: Intermittent Post Treatment Pain Post Treatment Pain Level: No Change Post Treatment Pain Location: Knee - Left Post Treatment Symptoms: He reported fatigue from a good workout but denied any increase in pain as he was leaving. He did report increased pain during wall slides but this eased on its own after completion OBJECTIVE MEASURES WITH LEVEL OF FUNCTION: LE AROM L LE AROM: supine L Knee Extension: 7 Degrees L Knee Flexion: 142 Degrees TREATMENT: Therapeutic Exercise: 1: Upright bike seat #11 x5 miniutes (Pt provided an update on his condition and plan of care reviewed.) 2: ankle pumps reviewed for HEP and continuation encouraged 3: supine quad sets with 2 second holds 2x10 to facilitate quad activation and L knee extension ROM 4: supine heel slides to facilitate L knee flexion 2x10 5: supine heel slides to facilitate L knee flexion 2x10 with overpressure from green strap 6: *supine L SLR 3x10 minimizing quad lag 7: *R sidelying L hip abd SLR 3x10 8: bridging in small range 2x10 9: L forward step ups on 4 step 2x10 10: wall slides in small range x10 11: seated LAQ x10 Skilled Intervention: Patient was educated in proper exercise technique and purpose for exercises. Reviewed and educated patient on additions/changes for home exercise program as above (*). Skilled judgment was used in selection of appropriate interventions. Provided written instruction for home exercise program to facilitate proper performance and compliance. Correct performance of therapeutic exercises was facilitated with verbal, visual, and tactile cuing. Patient education as noted. Gait Trainin: Gait correction reviewed and cued while patient walked around department. Mirror used for feedback as well. Skilled Intervention: Facilitated proper gait cycle with the use of verbal and visual cues for correction of gait deviations identified in the objective section above. Billing Therapeutic Exercise Treatment Minutes: 40 Gait Training Treatment Minutes: 5 Skilled Treatment Time Minutes (timed and untimed codes): 45 Total Session Time (minutes): 45 Session Start Time : 1240 Session Stop Time : 1325 Leoncio Clark PT Program_ID:[id number] Access Code: [email or web address] URL: [email or web address]/ Date: 12-29-2022 Prepared By: Leoncio Clark Program Notes Exercises - Supine Ankle Pumps - 10 x daily - 7 x weekly - 1 - 100 - Long Sitting Quad Set with Towel Roll Under Heel - 3 x daily - 7 x weekly - 2 - 10 - Supine Heel Slides - 3 x daily - 7 x weekly - 2 - 10 - Active Straight Leg Raise with Quad Set - 3 x daily - 7 x weekly - 2 - 10 - Sidelying Hip Abduction - 3 x daily - 7 x weekly - 2 - 10 documented in this encounter [facility] 10-04-2022 History of Presen t illness Narrative Images from the original note were not included. Subjective HPI HPI Won Loaiza is a 41 year old male who presents today for CC of left knee pain. This started 4 days ago. Has tried otc medication for relief. Symptoms are worsened by rom. Denies history of surgery or injury to left knee. Denies numbness and tingling of left leg. .Patient presents with: Knee Pain: left increased on Tuesday PAST MEDICAL HISTORY Diagnosis Date NEGATIVE MEDICAL HISTORY PAST SURGICAL HISTORY Procedure Laterality Date PAST SURGICAL HISTORY OF tonsillectomy TONSILLECTOMY HX ALLERGIES Amoxicillin, Ceclor [Cefaclor], and Penicillins MEDICATIONS acetaminophen 325 mg cap Take by mouth as needed. multivitamin (DAILY MULTI-VITAMIN) tablet Take 1 tablet by mouth once daily. (Patient not taking: Reported on 05/10/2022) cholecalciferol, vitamin D3, (VITAMIN D3 50 MCG, 2,000 UNIT, GUMMIES) Take 1 Dose by mouth once daily. (Patient not taking: Reported on 05/10/2022) Zinc 50 mg tab Take 50 mg by mouth once daily. (Patient not taking: Reported on 05/10/2022) FAMILY HISTORY Problem Relation Age of Onset Hypertension Mother Heart disease Paternal Grandfather Alcohol abuse Paternal Grandfather Social History Tobacco Use Smoking status: Every Day Packs/day: 0.50 Years: 23.00 Additional pack years: 0.00 Total pack years: 11.50 Types: Cigarettes Smokeless tobacco: Never Substance Use Topics Alcohol use: Yes Alcohol/week: 22.0 standard drinks of alcohol Types: 10 Shots of liquor, 12 Cans of Beer (12oz) per week Comment: 2-3 beers/day weekdays 10-11 shot vodka weekend per day Drug use: Never ROS Objective Blood pressure 134/80, pulse 108, temperature 36.9 C (98.4 F), resp. rate 16, weight 79.4 kg (175 lb), SpO2 98 %. Physical Exam Constitutional: General: He is not in acute distress. Appearance: He is not toxic-appearing or diaphoretic. HENT: Head: Normocephalic and atraumatic. Pulmonary: Effort: Pulmonary effort is normal. No accessory muscle usage or respiratory distress. Musculoskeletal: Right knee: No LCL laxity or MCL laxity. Left knee: No swelling, deformity, effusion, erythema or lacerations. Normal range of motion. Tenderness (see diagram) present. No medial joint line or lateral joint line tenderness. No LCL laxity or MCL laxity. Legs: Neurological: Mental Status: He is alert and oriented to person, place, and time. ASSESSMENT/PLAN: 1. Acute pain of left knee - ICD9: 719.46, ICD10: M25.562 -no bony abnormality noted on xray -given stretches/exercises -Rest, Ice, Compression, Elevation discussed -follow up with primary care if symptoms persist/worsen in 10-14 days - XR KNEE GENERAL 4V AP BOTH/PA BOTH/LAT/MERC LEFT IMPRESSION: Negative bilateral knee. Dictated by : ALEC GUEVARA MD - PREDNISONE 10 MG TABLET Nahum Gan APRN.PROJECT FINANCIAL ANALYST documented in this encounter [facility] 10-04-2022 History of Presen t illness Narrative Radiology Service Progress Note PATIENT NAME: Won Loaiza DATE OF SERVICE: October 04, 2022 TIME: 5:22 PM PATIENT IDENTITY VERIFICATION COMPLETED USING TWO (2) IDENTIFIERS: Name and Date of confirmed by patient verbally. FALL SCREENING: Has the patient had 2 falls in the last year or 1 fall with injury or currently using an Ambulatory Assistive Device (Walker, Cane, Wheelchair, Crutches, etc.)? No PATIENT GENDER DATA: Male PATIENT RELEVANT IMPLANT DATA REVIEWED: Not Applicable RADIOLOGY DEPARTMENT: General X-ray: Exam(s) Completed: Lower Extremity X-Ray(s): Knee, AP / Lat / Tunne / Merchant Left and Wt. Bearing PERIPHERAL IV DATA: Not applicable SIGNED BY: RT Claudia(R) October 04, 2022 5:22 PM documented in this encounter [facility] 05-10-2022 History of Presen t illness Narrative Patient presents with: Pain, Back: Lower back, groin pain, issues urinating x 2 days HPI: Back pain: Duration: 3 days Location: right lower back Character: aching Radiation: right groin Aggravating: sleeping on the couch Relieving: ibuprofen Pain relievers: Motrin Associated: occasional left leg numbness to the foot Pertinent negatives: Denies known injury Dysuria: No Frequency: drinking extra fluids Hematuria: No Stream: slower Nausea: No Fever or chills: chills Back pain: Yes Abdominal pain: sometimes pelvic area Prior UTI: maybe Personal history of kidney stones: No Family history of kidney stones: mother MEDICATIONS: Current Outpatient Medications Medication Sig acetaminophen 325 mg cap Take by mouth as needed. multivitamin (DAILY MULTI-VITAMIN) tablet Take 1 tablet by mouth once daily. (Patient not taking: Reported on 05/10/2022) cholecalciferol, vitamin D3, (VITAMIN D3 50 MCG, 2,000 UNIT, GUMMIES) Take 1 Dose by mouth once daily. (Patient not taking: Reported on 05/10/2022) Zinc 50 mg tab Take 50 mg by mouth once daily. (Patient not taking: Reported on 05/10/2022) No current facility-administered medications for this visit. ALLERGIES: ALLERGIES Allergen Reactions Amoxicillin Hives Ceclor [Cefaclor] Hives Penicillins Hives VITALS: BP 124/80 Pulse (!) 121 Temp 37.6 C (99.6 F) Resp 16 Wt 75.8 kg (167 lb) SpO2 99% BMI 21.44 kg/m PHYSICAL EXAM: GEN: NAD, somewhat anxious HEENT: EOMI, conjunctiva clear, HEART: regular rate and rhythm, no murmurs LUNGS: clear to auscultation, no wheezes or crackles, no increased WOB ABDOMEN: Soft, nondistended, no masses, no suprapubic tenderness BACK: No CVA, midline, or paraspinal tenderness. Straight leg test negative. HIPS: No pain with internal or external rotation. No pain with palpation over the greater trochanter. ASSESSMENT/PLAN: 1. Acute right flank pain - ICD9: 789.09, 338.19, ICD10: R10.9 (primary diagnosis) 2. Urinary frequency - ICD9: 788.41, ICD10: R35.0 - UA DIP, URINE (POC) - negative. Low suspicion for renal calculus or UTI with normal UA. Suspect musculoskeletal right low back pain. Continue OTC analgesia. Follow up in the ER with fever, worsening flank pain, nausea/vomiting, or blood in the urine. Casa Rodriguez MD documented in this encounter [facility] 11-18-2021 Instructions Kiley Gonzales APRN.PROJECT FINANCIAL ANALYST - 11/18/2021 7:42 AM EDT - If testing is negative, most likely another viral illness - Use a cool mist humidifier while sleeping/laying down - Steam showers to help with cough and congestion (steam up bathroom and sit in there for 15-20 minutes at a time) - Saline nose spray (do not use 2-3 hours prior to testing) - Push fluids; if decreased appetite, incorporate Gatorade/Powerade/Pedialyte - Recommended warm water/tea with honey - Acetaminophen and/or ibuprofen, as your medical history allows (ie: avoid NSAIDs with cardiac surgery, limit with hypertension and/or Diabetes, any history of GI bleed or ulcers, limit with GERD, etc.) - Do NOT take ibuprofen on an empty stomach - Cover cough and wash hands frequently to prevent the spread of germs - Can trial over the counter cough medications, such as Robitussin or Delsym, for cough - Good handwashing, wear a mask around others, do not share food or drink Recommend self quarantine for 5 days with home isolation and if on day 5 symptoms are still present but mild or resolved can return to public but must wear mask in all places for an additional 5 days; if symptoms are still persistent, worsening and not improved remain in quarantine until you meet the stated criteria PENDING RESULTS AND IF POSITIVE COVID Results will be communicated through your mychart For symptoms that persist or worsen, fever, chills, sweats, cough, shortness of breath, or wheezing please GO TO NEAREST EMERGENCY DEPARTMENT IMMEDIATELY Schedule follow up with PCP in 1-2 weeks or sooner with concerns if needed PATIENT INSTRUCTIONS: At present, these are our recommendations regarding the coronavirus (COVID-19) outbreak: - Wash your hands regularly for at least 20 seconds with soap and water, especially before eating. - If soap/water are unavailable, use a hand elastic yarn twister helper with at least 60% alcohol - Avoid touching your eyes, nose and mouth with unwashed hands. - Avoid close contact (within 6 feet) with people who are sick. - Stay home if you are feeling sick. - Cover your cough or sneeze with a tissue, then throw the tissue in the trash. - Standard household cleansers and wipes are effective in cleaning and disinfecting frequently touched objects and surfaces. - Skip events that put you in contact with large groups of people (sporting events, concerts, theme ca, etc). - Avoid unnecessary domestic and international travel, including travel through large international airports. - If traveling, wipe down your airplane seat (and tray) with a disinfecting wipe. If you have a fever, cough or shortness of breath, or are otherwise concerned you have COVID-19, we ask that you do not come to any [facility] facility without calling your primary care physician or speaking to a provider using a virtual visit using [facility] Problemsolutions24. You will be evaluated to determine if you require being seen in person or if you meet CDC guidelines for testing for COVID-19 based on symptoms, travel and exposures. If you meet criteria for testing, your [employer] provider or primary care physician will advise how to proceed with testing - CDC recommends wearing cloth face coverings in public settings where other social distancing measures are difficult to maintain (e.g., grocery stores and pharmacies) especially in areas of significant community-based transmission. Cloth face coverings should: fit snugly but comfortably against the side of the face be secured with ties or ear loops include multiple layers of fabric allow for breathing without restriction be able to be laundered and machine dried without damage or change to shape Cloth face coverings should not be placed on young children under age 2, anyone who has trouble breathing, or is unconscious, incapacitated or otherwise unable to remove the mask without assistance. - There is no need to stop your immunosuppressive medications preemptively. - If you become sick, please let your doctor know, and discuss with them prior to stopping any medications. - At this point, we have no knowledge that patients on immunosuppressive medications are at higher risk of COVID-19 infection. - People with weakened immune systems are at higher risk of getting severely sick from SARS-CoV-2, the virus that causes COVID-19. - They may also remain infectious for a longer period of time than others with COVID-19, but we cannot confirm this until we learn more about this new virus. Steps You Can Take to Protect Your Health - Continue your regular treatment plan. Don't stop any medications or treatments without talking to your doctor. - Discuss any concerns about your treatment with your doctor. - Keep your regularly scheduled medical appointments. - Talk to your doctor about steps they are taking to reduce risk of exposure to COVID-19 in the office. - Use telehealth services whenever possible if recommended by your doctor. - Ensure that you are getting necessary tests prescribed by your doctor. - Seek urgent medical care if you are feeling unwell. Talk to your doctor, insurer, and pharmacist about getting an emergency supply of prescription medications. Make sure you have at least 30 days of prescription medications, shzw-ygo-cglrvix medicines, and supplies on hand in case you need or want to stay home for several weeks. Talk to your doctor or pharmacist about ways to receive your medications by mail. - Take steps to care for your emotional health. Fear and anxiety about COVID-19 can be overwhelming and cause strong emotions. It is natural to feel concerned or stressed about COVID-19. - Learn more about stress and coping with anxiety here. Call your healthcare provider if stress gets in the way of your daily activities for several days in a row. - If you are feeling overwhelmed with emotions like sadness, depression, or anxiety, or feel like you want to harm yourself or others: Call 911 if you feel like you want to harm yourself or others Visit the Disaster Distress Helplineexternal icon, call [place] [address] Visit the National Domestic Violence Hotlineexternal icon or call and TTY Visit the National Suicide Prevention Lifelineexternal icon or call and TTY or text - Most importantly, don't panic. By following basic prevention measures such as hand hygiene and cover your cough, you are helping to keep yourself and others healthy. Additional information can be found on the CDC and [facility] web sites: https://www.cdc.gov/coronavirus/ 2019-nCoV/index.html [email or web address] documented in this encounter [facility] 11-18-2021 History of Presen t illness Narrative Telemedicine Evaluation for COVID-19 Infection Alternative video platform was used for evaluation of this patient. Location of patient: [facility] Won Loaiza is a 41 year old male who presents with 1 day of symptoms that are worsening. Unsure of exposure but attended a concert last week. He is not COVID vaccinated. Per patient needs a COVID test for work. Per patient took an at home test that resulted positive this morning, but work will not accept the at home test. Symptoms include: Fever (?100.4F): No or Chills: Yes Cough: No Shortness of breath: Yes, mild or Difficulty breathing: No Fatigue: Yes Muscle aches: Yes Headache: No New loss of smell or taste: No Sore throat: Yes, mild Nasal congestion: No or Rhinorrhea: No Nausea: No or Vomiting: No Diarrhea: No OTC meds/remedies that patient has tried: ibuprofen. High risk category assessment Chronic lung disease (smoker) Exposures: Sick contacts? No Family or close contacts with confirmed/probable COVID-19 in last 14 days? No He reports that he has been smoking cigarettes. He has a 11.50 pack-year smoking history. He has never used smokeless tobacco. OBJECTIVE VIDEO EXAM (if available) GENERAL: well appearing, alert, in no acute distress HEENT: no conjunctival injection, pupils equal, moist mucous membranes, oropharynx clear without erythema, sinuses non-tender to self-palpation, and no cervical adenopathy by self-palpation PULMONARY: breathing comfortably on room air , no coughing noted, and no wheezing noted ASSESSMENT/PLAN (U07.1) COVID-19 (primary encounter diagnosis) Discussed COVID-19 symptom management, contagiousness, quarantine guidelines, along with Red Flag symptoms that would warrant in person exam if arise. - Patient scheduled for testing at the time of visit. - Instructed to isolate pending test results - Discussed symptom monitoring and supportive care - Red flag symptoms requiring follow up discussed - Discussed if viral testing negative, may return to work as long as he remains fever free - If testing is negative, most likely another viral illness - Use a cool mist humidifier while sleeping/laying down - Steam showers to help with cough and congestion (steam up bathroom and sit in there for 15-20 minutes at a time) - Saline nose spray (do not use 2-3 hours prior to testing) - Push fluids; if decreased appetite, incorporate Gatorade/Powerade/Pedialyte - Recommended warm water/tea with honey - Acetaminophen and/or ibuprofen, as your medical history allows (ie: avoid NSAIDs with cardiac surgery, limit with hypertension and/or Diabetes, any history of GI bleed or ulcers, limit with GERD, etc.) - Do NOT take ibuprofen on an empty stomach - Cover cough and wash hands frequently to prevent the spread of germs - Can trial over the counter cough medications, such as Robitussin or Delsym, for cough - Good handwashing, wear a mask around others, do not share food or drink - Patient scheduled for testing at the time of visit. - Instructed to isolate pending test results - Discussed symptom monitoring and supportive care - Red flag symptoms requiring follow up discussed This patient encounter involved the screening or treatment of novel coronavirus infection (COVID-19). documented in this encounter [facility] 06-18-2021 History of Presen t illness Narrative Patient presents with: Right Hand - Established Patient, Pain Anderson Powell MD Department of Orthopaedics Orthopaedics [address] [facility] [address] Dept: [phone] Dept June 18, 2021 CHIEF COMPLAINT: Established Patient and Pain of the Right Hand HPI Patient reports having had a palate land directly on the hand it was on the edge of something, felt a crack had some swelling, etc. With the persistent swelling, wanted to get it checked out AMB ROOMING INTAKE FLOWSHEET DATA Risk Screening Do you have concerns about personal safety or safety in the home?: No Pain Pain Location: Hand-Right Description: Aching Duration Amount of Time: 3 Duration Units: Weeks Frequency: Continuous Comments: pallet fell on right hand while doing work related project (not workers comp related). Previouly broken this hand 11/2020. X rays done 06/18/21. ASSESSMENT: S62.324A Closed displaced fracture of shaft of fourth metacarpal bone of right hand, initial encounter (primary encounter diagnosis) PLAN: Amazingly, he broke through the fourth metacarpal again yet then the intramedullary screw which is in a way keeping things in a reasonable position. I had a lengthy discussion with him about the near impossibility of getting that screw out, furthermore the fact that it is keeping an internal brace essentially. He can basically continue activities as tolerated and I would think this will likely heal on its own due to the stability. Mr. Won Loaiza was advised as to contrast therapies and/or to take analgesics/anti-inflammatories as needed and all contraindications were reviewed. OBJECTIVE: Mr. Won Loaiza is a pleasant 40 year old in no apparent distress. Gen:There were no vitals taken for this visit. nl development, non obese, no deformities ENT: Normocephalic, normal hearing, moist mucosa CV: Pulses:Radial= 2+ and symmetric, capillary refill < 2 secs, no peripheral edema/varicosities Skin: no rash, bruising or lesions. Good turgor. Psych: cooperative and appropriate, alert and oriented x 3, good mood and affect. Musculoskeletal: Swelling of the dorsum of the hand and the ring metacarpal with some slight tenderness at the apex. No malrotation. Good finger flexion already. Imaging: IMPRESSION: Acute fracture through the midshaft of the right fourth metacarpal with subsequent bowing of the intramedullary pin and mild angulation with the apex directed dorsally. 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 had hardware put in last Nov and something fell on hand 2 weeks ago. When he makes a fist can feel lump over dorsal isde of 4th MC. TECHNIQUE: XR HAND 3V PA/LAT/OBL RT Laterality: RIGHT Number of different views (projections): 3 M: XB_1 COMPARISON: Comparison is made to prior study dated 12/01/2020 and 05 January 2021 RESULT: AP, oblique and lateral radiographs of the right hand demonstrate remote intramedullary pin placement at the fourth and fifth right metacarpals. There is no evidence of hardware failure or superimposed acute fracture of the fifth metacarpal. No acute fracture through the midshaft of the right fourth metacarpal with associated bowing deformity with the apex directed dorsally. No bowing deformity of the intramedullary pin also noted without apparent fracture. There is no dislocation or other acute bony process. Supporting Subjective Information Below: Past Surgical History: PAST SURGICAL HISTORY Procedure Laterality Date PAST SURGICAL HISTORY OF tonsillectomy TONSILLECTOMY HX Medications: Current Outpatient Medications Medication Sig acetaminophen (TYLENOL) 325 mg cap Take by mouth as needed. multivitamin (DAILY MULTI-VITAMIN) tablet Take 1 tablet by mouth once daily. cholecalciferol, vitamin D3, (VITAMIN D3 50 MCG, 2,000 UNIT, GUMMIES) Take 1 Dose by mouth once daily. Zinc 50 mg tab Take 50 mg by mouth once daily. No current facility-administered medications for this visit. Allergies: Amoxicillin, Ceclor [Cefaclor], and Penicillins ROS: General (negative for fatigue, malaise, weight loss/gain) HEENT (negative for headache, earache, recent vision changes, sinus pain, sore throat) Respiratory (no recent shortness of breath, hemoptysis) CV (negative for chest tightness, palpitations) Musculoskeletal (see HPI) Psych (no depression, anxiety) Anderson Powell MD documented in this encounter [facility] 11-19-2020 Note HNO ID: [id number] Author: Vladimir Gan MD Service: ? Author Type: Anesthesiologist Type: Anesthesia Procedure Notes Filed: 11/19/2020 1:30 PM Note Text: ANESTHESIOLOGY PROCEDURE NOTE Peripheral Nerve Block General Information Procedure Start Time/Medication Administration: 11/19/2020 12:49 PM Procedure End time: 11/19/2020 12:55 PM Patient location during procedure: PACU Timeout Performed Pre-procedure: timeout performed Consent Obtained: Yes Patient identity confirmed: arm band and patient Reason for block: primary surgical anesthetic Staffing Anesthesiologist: Vladimir Gan MD Performed by: anesthesiologist Preparation Sterility Preparation: hand hygiene performed prior to procedure, surgical cap used, mask used, sterile drape used during line insertion, skin prep agent completely dried prior to procedure Site Prep: Chloraprep Pre-Procedure Neuro Exam Location: RUE Sensory: intact Motor: intact Procedure Details Patient Position: sitting Monitoring: Pulse OX, EKG and NIBP Block Type Upper Extremity: axillary Multiple Levels: No Laterality: right Injection Technique: single-shot Ultrasound Guided: Yes Image in Chart: yes Local Infiltration: Yes Needle Needle Gauge: 20 G Needle Localization: anatomical landmarks Assessment Injection assessment: negative aspiration, no paresthesia on injection, incremental injection and local visualized surrounding nerve on ultrasound Paresthesia: immediately resolved Post-Procedure Neuro Exam Expected Regional Anesthesia: Yes Medications Administered Bupivacaine (PF) 0.5 % (5 mg/mL) injection, 15 mL lidocaine-EPINEPHrine (PF) 2 %-1:200,000 injection, 5 mL SIGNATURE: Vladimir Gan MD PATIENT NAME: Won Loaiza DATE: November 19, 2020 TIME: 1:26 PM CSN: [id number] [facility] 11-10-2020 History of Presen t illness Narrative Radiology Service Progress Note PATIENT NAME: Won Loaiza DATE OF SERVICE: November 10, 2020 TIME: 6:01 PM PATIENT IDENTITY VERIFICATION COMPLETED USING TWO (2) IDENTIFIERS: Name and Date of confirmed by patient verbally. FALL SCREENING: Has the patient had 2 falls in the last year or 1 fall with injury or currently using an Ambulatory Assistive Device (Walker, Cane, Wheelchair, Crutches, etc.)? No PATIENT GENDER DATA: Male PATIENT RELEVANT IMPLANT DATA REVIEWED: Yes RADIOLOGY DEPARTMENT: General X-ray: Exam(s) Completed: Upper Extremity X-Ray(s): Hand, right PERIPHERAL IV DATA: Not applicable SIGNED BY: RT Jessica(R) November 10, 2020 6:01 PM documented in this encounter [facility] Evaluation note Diagnosis Right hand pain- Primary Pain in limb [facility] Diagnosis Closed displaced fracture of shaft of fourth metacarpal bone of right hand, initial encounter- Primary [facility] Diagnosis COVID-19- Primary documented in this encounter [facility] note* Diagnosis Acute right flank pain- Primary Abdominal pain, unspecified site Urinary frequency documented in this encounter [facility] note* Diagnosis Acute pain of left knee- Primary documented in this encounter [facility] note* Diagnosis Acute medial meniscus tear of left knee, subsequent encounter- Primary Chondromalacia of left patella Chondromalacia of patella documented in this encounter [facility] note* Diagnosis Acute medial meniscus tear of left knee, subsequent encounter- Primary Chondromalacia of left patella Chondromalacia of patella documented in this encounter [facility] note* Diagnosis Acute medial meniscus tear of left knee, subsequent encounter- Primary Chondromalacia of left patella Chondromalacia of patella documented in this encounter [facility] note* Diagnosis Acute medial meniscus tear of left knee, subsequent encounter- Primary Chondromalacia of left patella Chondromalacia of patella documented in this encounter [facility] note* Diagnosis Acute medial meniscus tear of left knee, subsequent encounter- Primary Chondromalacia of left patella Chondromalacia of patella documented in this encounter [facility] note* Diagnosis Acute medial meniscus tear of left knee, subsequent encounter- Primary Chondromalacia of left patella Chondromalacia of patella documented in this encounter [facility] note* Diagnosis Preop examination- Primary Preoperative examination, unspecified Closed nondisplaced fracture of fourth metacarpal bone of right hand with malunion, unspecified portion of metacarpal, subsequent encounter Alcohol abuse Alcohol abuse, unspecified Right flank pain- Primary Abdominal pain, unspecified site Frequency of urination Urinary frequency documented in this encounter [facility] note* Diagnosis Preop examination- Primary Preoperative examination, unspecified Closed nondisplaced fracture of fourth metacarpal bone of right hand with malunion, unspecified portion of metacarpal, subsequent encounter Alcohol abuse Alcohol abuse, unspecified Right flank pain Abdominal pain, unspecified site documented in this encounter [facility] for referral (narrative)* Diagnostic Procedure Only (Routine) - Pending Review Specialty Diagnoses / Procedures Referred By Alanna prieto Referred To Contact XR IMAGING Diagnoses Right hand pain Procedures XR HAND GENERAL 3V PA/LAT/OBL RIGHT RADEX HAND MINIMUM 3 VIEWS Anderson Powell MD [address] [place] [address] Xr Imaging Referral ID Status Reason Start Date Expiration Date Visits Requested Visits Authorized [id number] Pending Review Auto-Generat ed Referral 06/16/2021 07/16/2022 1 1 [facility] for referral (narrative)* Diagnostic Procedure Only (Urgent) - Closed Specialty Diagnoses / Procedures Referred By Contac t Referred To Contact XR IMAGING Diagnoses Acute pain of left knee Procedures XR KNEE GENERAL 4V AP BOTH/PA BOTH/LAT/MERC LEFT RADIOLOGIC EXAM KNEE COMPLETE 4/MORE VIEWS Nahum Gan APRN.PROJECT FINANCIAL ANALYST [address] [place] [address] [place] [address] Referral ID Status Reason Start Date Expiration Date V isits Requested Visits Authorized [id number] Closed Auto-Generate d Referral 10/04/2022 11/03/2023 1 1 [facility] for visit Narrative* Diagnostic Procedure Only (Urgent) - Closed Specialty Diagnoses / Procedures Referred By Contac t Referred To Contact XR IMAGING Diagnoses Acute pain of left knee Procedures XR KNEE GENERAL 4V AP BOTH/PA BOTH/LAT/MERC LEFT RADIOLOGIC EXAM KNEE COMPLETE 4/MORE VIEWS Nahum Gan APRN.PROJECT FINANCIAL ANALYST [address] [place] [address] [place] [address] Referral ID Status Reason Start Date Expiration Date V isits Requested Visits Authorized [id number] Closed Auto-Generate d Referral 10/04/2022 11/03/2023 1 1 [facility] for visit Narrative* Diagnostic Procedure Only (Urgent) - Closed Specialty Diagnoses / Procedures Referred By Contac t Referred To Contact XR IMAGING Diagnoses Hand injuries, right, initial encounter Procedures XR HAND GENERAL 3V PA/LAT/OBL RT X-RAY HAND MINIMUM 3 VIEWS Nahum Gan APRN.PROJECT FINANCIAL ANALYST [address] [place] [address] [place] [address] Referral ID Status Reason Start Date Expiration Date V isits Requested Visits Authorized [id number] Closed Auto-Generate d Referral 11/10/2020 12/10/2021 1 1 [facility] Summary Purpose Family History No Family History Records FoundNo Family History Records FoundNo Family History Records FoundNo Family History Records FoundNo Family History Records Found Advance Directives Documents on File Type Date Recorded Patient Heel Emery Buffer Expl anation Advance Directive(s) 11/19/2020 11:08 AM Advance Directive(s) 11/17/2020 9:37 AM Documents on File Type Date Recorded Patient Heel Emery Buffer Expl anation Advance Directive(s) 11/19/2020 11:08 AM Advance Directive(s) 11/17/2020 9:37 AM Additional Source Comments (unrecognized sect ion and content) No Status Records FoundNo Status Records FoundNo Status Records FoundNo Status Records FoundNo Status Records Found INFORMATION SOURCE (unrecogn ized section and content) DATE CREATED AUTHOR 04/23/2019 [facility] DATE CREATED AUTHOR AUTHOR'S ORGANIZ ATION 11/20/2020 [facility] DATE CREATED AUTHOR AUTHOR'S ORGANIZ ATION 03/23/2021 [facility] DATE CREATED AUTHOR AUTHOR'S ORGANIZ ATION 03/29/2024 [facility] DATE CREATED AUTHOR AUTHOR'S ORGANIZ ATION 04/01/2024 [facility] Source Comments (unrecognize d section and content) In the event this informatio n is protected by the Federal Confidentiality of Alcohol and Drug Abuse Patient Records regulations: The Federal rules restrict any use of the information to criminally investigate or prosecute any alcohol or drug abuse patient.[facility] the event this information is protected by the Federal Confidentiality of Alcohol and Drug Abuse Patient Records regulations: The Federal rules restrict any use of the information to criminally investigate or prosecute any alcohol or drug abuse patient.[facility] the event this information is protected by the Federal Confidentiality of Alcohol and Drug Abuse Patient Records regulations: The Federal rules restrict any use of the information to criminally investigate or prosecute any alcohol or drug abuse patient.[facility] the event this information is protected by the Federal Confidentiality of Alcohol and Drug Abuse Patient Records regulations: The Federal rules restrict any use of the information to criminally investigate or prosecute any alcohol or drug abuse patient.[facility] the event this information is protected by the Federal Confidentiality of Alcohol and Drug Abuse Patient Records regulations: The Federal rules restrict any use of the information to criminally investigate or prosecute any alcohol or drug abuse patient.[facility] the event this information is protected by the Federal Confidentiality of Alcohol and Drug Abuse Patient Records regulations: The Federal rules restrict any use of the information to criminally investigate or prosecute any alcohol or drug abuse patient.[facility] the event this information is protected by the Federal Confidentiality of Alcohol and Drug Abuse Patient Records regulations: The Federal rules restrict any use of the information to criminally investigate or prosecute any alcohol or drug abuse patient.[facility] the event this information is protected by the Federal Confidentiality of Alcohol and Drug Abuse Patient Records regulations: The Federal rules restrict any use of the information to criminally investigate or prosecute any alcohol or drug abuse patient.[facility] the event this information is protected by the Federal Confidentiality of Alcohol and Drug Abuse Patient Records regulations: The Federal rules restrict any use of the information to criminally investigate or prosecute any alcohol or drug abuse patient.[facility] the event this information is protected by the Federal Confidentiality of Alcohol and Drug Abuse Patient Records regulations: The Federal rules restrict any use of the information to criminally investigate or prosecute any alcohol or drug abuse patient.[facility] the event this information is protected by the Federal Confidentiality of Alcohol and Drug Abuse Patient Records regulations: The Federal rules restrict any use of the information to criminally investigate or prosecute any alcohol or drug abuse patient.[facility] the event this information is protected by the Federal Confidentiality of Alcohol and Drug Abuse Patient Records regulations: The Federal rules restrict any use of the information to criminally investigate or prosecute any alcohol or drug abuse patient.[facility] the event this information is protected by the Federal Confidentiality of Alcohol and Drug Abuse Patient Records regulations: The Federal rules restrict any use of the information to criminally investigate or prosecute any alcohol or drug abuse patient.[facility] the event this information is protected by the Federal Confidentiality of Alcohol and Drug Abuse Patient Records regulations: The Federal rules restrict any use of the information to criminally investigate or prosecute any alcohol or drug abuse patient.[facility] the event this information is protected by the Federal Confidentiality of Alcohol and Drug Abuse Patient Records regulations: The Federal rules restrict any use of the information to criminally investigate or prosecute any alcohol or drug abuse patient.[facility] the event this information is protected by the Federal Confidentiality of Alcohol and Drug Abuse Patient Records regulations: The Federal rules restrict any use of the information to criminally investigate or prosecute any alcohol or drug abuse patient.[facility] the event this information is protected by the Federal Confidentiality of Alcohol and Drug Abuse Patient Records regulations: The Federal rules restrict any use of the information to criminally investigate or prosecute any alcohol or drug abuse patient.[facility] Teams (unrecognized sec tion and content) Mobility Developer Relationship Specialty Start Date End Date Doron Cassidy, PCP - General Family Practice 04/19/19 Mobility Developer Relationship Specialty Start Date End Date Doron Cassidy, DO PCP - General Family Practice 04/19/19 Mobility Developer Relationship Specialty Start Date End Date Doron Cassidy, DO PCP - General Family Medicine 04/19/19 Mobility Developer Relationship Specialty Start Date End Date Doron Cassidy, DO PCP - General Family Medicine 04/19/19 Mobility Developer Relationship Specialty Start Date End Date Doron Cassidy DO PCP - General Family Medicine 04/19/19 Mobility Developer Relationship Specialty Start Date End Date Doron Cassidy DO PCP - General Family Medicine 04/19/19 Mobility Developer Relationship Specialty Start Date End Date Doron Cassidy DO PCP - General Family Medicine 04/19/19 Mobility Developer Relationship Specialty Start Date End Date Doron Cassidy DO PCP - General Family Medicine 04/19/19 Mobility Developer Relationship Specialty Start Date End Date Doron Cassidy DO PCP - General Family Medicine 04/19/19 Mobility Developer Relationship Specialty Start Date End Date Doron Cassidy DO PCP - General Family Medicine 04/19/19 Mobility Developer Relationship Specialty Start Date End Date Doron Cassidy DO PCP - General Family Medicine 04/19/19 Mobility Developer Relationship Specialty Start Date End Date Doron Cassidy DO PCP - General Family Medicine 04/19/19 02/08/23 Mobility Developer Relationship Specialty Start Date End Date Doorn Cassidy DO PCP - General Family Medicine 04/19/19 02/08/23 Reason for Visit (unrecogniz ed section and content) Reason Comments Physical Therapy Specialty Diagnoses / Procedures Referred By Contac t Referred To Contact Physical Therapy / PHYSICAL THERAPY Diagnoses Meniscal injury, left, initial encounter left knee torn meniscus DOS 12/08/22 will bring order from [facility] Procedures NEW PATIENT VISIT LEVEL 1 NEW RS PT ORTH QI Watkins, Houston Diaz MD [address] [facility] [address] [place] [address] Leoncio Clark, PT [address] [place] [address] Referral ID Status Reason Start Date Expiration Date V isits Requested Visits Authorized [id number] Authorized 02/07/2022 02/06/2023 20 20 Reason Comments PT Progress Note Physical Therapy Reason Comments Established Patient Pain Reason Comments Covid19 Concern Reason Comments Pain, Back Lower back, groin pa in, issues urinating x 2 days Reason Comments Knee Pain left increased on Fr iday Reason Comments Kidney Stones possible Reason Comments Radiology CT Specialty Diagnoses / Procedures Referred By Alanna t Referred To Contact CT IMAGING Diagnoses Right flank pain Procedures CT FLANK WO IVCON CT ABD & PELVIS W/O CONTRAST Kayla Arenas PA [address] [place] [address] Phone: tel: fax: [place] [phone] Referral ID Status Reason Start Date Expiration Date V isits Requested Visits Authorized [id number] Closed Auto-Generate d Referral 03/27/2024 04/26/2025 1 1 Reason Comments Results Reason Onset Date Comments Results 03/29/2024 FOR RECORDS PERTAINING TO PATIENTS WHO ARE OR HAVE BEEN ENROLLED IN A CHEMICAL DEPENDENCY/SUBSTANCEABUSE PROGRAM, SOME INFORMATION MAY BE OMITTED. This clinical summary was aggregated from multiple sources. Caution should be exercised in using it in the provision of clinical care. This summary normalizes information from multiple sources, and as a consequence, information in this document may materially change the coding, format and clinical context of patient data. In addition, data may be omitted in some cases. CLINICAL DECISIONS SHOULD BE BASED ON THE PRIMARY CLINICAL RECORDS. [facility] [facility]. provides no warranty or guarantee of the accuracy or completeness of information in this document.
--- NOTE | 2024-09-01 23:50 | RAD_ITS ---
PROCEDURE: SHOULDER MIN 2 VIEWS 09/02/2024 REASON FOR EXAM: REDUCTION TECHNIQUE: SHOULDER MIN 2 VIEWS COMPARISON: 09/01/2024 FINDINGS: Interval reduction of recent glenohumeral dislocation. No visible fracture. RAD/Shoulder min 2 Views IMPRESSION: Successful reduction of shoulder dislocation. Reading Location: [place] [address]
[2024-09-02 02:16] VITALS: BP 110/79; PULSE 80; RESP 20; TEMP 36.3; O2SAT 96
== END 2024-09-02 02:16 | disposition home or self-care (01) ==
PROVIDERS: Emergency Provider Emergency Medicine; Visit Provider Emergency Medicine
DX: S43.014A Anterior dislocation of right humerus, initial encounter (principal); W10.9XXA Fall (on) (from) unspecified stairs and steps, initial encounter; F17.290 Nicotine dependence, other tobacco product, uncomplicated
CPT/HCPCS: 73030; 96374; 96375; 99284; A4216; J2405